=== PATIENT | female | born 1965 | race Caucasian/White ===

== ENCOUNTER → 2016-05-01 | Outpatient (CLI) | payer BC ==
--- NOTE | 2016-05-01 13:16 | MM ---
Reason for exam: clinical finding. Last mammogram was performed 4 years and 4 months ago. History: Retro-pectoral silicone gel implants in both breasts, 2011. Retro-pectoral saline implants in both breasts, 1997. Physical Findings: Nurse did not find any significant physical abnormalities on exam. MG Diag Mamm Implants WYATT w CAD Bilateral CC and MLO view(s) were taken. Prior study comparison: December 16, 2011, CAD bilateral diagnostic mammogram. October 15, 2009, bilateral diagnostic digital mammog. There are scattered fibroglandular densities. Finding: There are typically benign calcifications in both breasts. No significant changes in finding since December 16, 2011 and October 15, 2009. These results were verbally communicated with the patient and result sheet given to the patient on 05/01/16. ASSESSMENT: Benign, BI-RAD 2 RECOMMENDATION: Follow-up diagnostic mammogram of both breasts in 1 year.
== END | disposition home or self-care (01) ==
LOC: RADMAMWWP 12:13
PROVIDERS: ATTEND Internal Medicine
DX: N64.4 Mastodynia (principal); Z98.82 Breast implant status

== ENCOUNTER → 2016-10-12 | Outpatient (CLI) | payer BC ==
--- NOTE | 2016-10-12 17:58 | XR ---
EXAMINATION TYPE: XR foot limited RT DATE OF EXAM: 10/12/2016 CLINICAL HISTORY: Pain TECHNIQUE: 2 views. COMPARISON: None FINDINGS: I see no fracture nor dislocation. There is a small plantar calcaneal spur. There are no er osions. IMPRESSION: Calcaneal spurring. No evidence of inflammatory arthritis.
== END | disposition home or self-care (01) ==
LOC: RADXRMAIN 16:29
PROVIDERS: ATTEND Internal Medicine
DX: M77.31 Calcaneal spur, right foot (principal); M79.671 Pain in right foot

== ENCOUNTER 2018-07-06 19:18 | Emergency (ER) | payer BC ==
[2018-07-06] MEDS ORDERED: FLUTICASONE 50MCG/SPRAY NASAL 16GM EA NOSTRIL STA (20:07)
--- NOTE | 2018-07-06 20:24 | XR ---
EXAMINATION TYPE: XR chest 2V DATE OF EXAM: 07/06/2018 COMPARISON: NONE HISTORY: Cough and fever TECHNIQUE: Frontal and lateral views of the chest are obtained. FINDINGS: Heart and mediastinum are normal. Lungs are clear. Diaphragm is normal. Bony thorax is int act. IMPRESSION: Normal chest
--- NOTE | 2018-07-06 20:37 | ED ---
General Adult HPI - General Chief complaint: Upper Respiratory Infection Stated complaint: Flu Time Seen by Provider: 07/06/18 19:58 Source: patient, RN notes reviewed, old records reviewed Mode of arrival: ambulatory Limitations: no limitations - History of Present Illness Initial comments: 52-year-old female patient presents to ED approximately 2 weeks of nonproductive cough, otalgia, sore throat, sinus congestion. Patient reports that she has been evaluated by her primary care physician for this problem approximately 10 get days ago in which she was prescribed Tamiflu for possible influenza. Patient reports that she was not tested for influenza and did not have a chest x-ray. Patient denies any other complaints today. She does report that she had recent prolonged travel to [place] and [facility]. Systemic: Pt denies fatigue, myalgia, fever/chills, rash. Pt denies weakness, night sweats, weight loss. Neuro: Pt denies headache, visual disturbances, syncope or pre-syncope. HEENT: Pt denies ocular discharge or irritation, rhinorrhea, or notable lymphadenopathy. Cardiopulmonary: Pt denies chest pain, SOB, heart palpitations, dyspnea on exertion. Abdominal/GI: Pt denies abdominal pain, n/v/d. : Pt denies dysuria, burning w/ urination, frequency/urgency. Denies new onset urinary or bowel incontinence. MSK: Pt denies myalgia, loss of strength or function in extremities. Neuro: Pt denies new onset weakness, paresthesias. - Related Data Home Medications Medication Instructions Recorded Confirmed Ibuprofen [Motrin] 200 - 400 mg PO Q6HR PRN 03/23/16 04/14/16 Venlafaxine HCl [Effexor XR] 37.5 mg PO HS 03/23/16 04/14/16 Docusate [Colace] 100 mg PO DAILY PRN 04/14/16 04/14/16 HYDROcodone/APAP 10-325MG [[place] 0.5 tab PO HS PRN 04/14/16 04/14/16 10-325] Previous Rx's Medication Instructions Recorded Acetaminophen with Codeine 1 tab PO Q4H PRN #30 tab 04/14/16 [Tylenol w/codeine #3] Ciprofloxacin HCl [Cipro] 500 mg PO Q12HR #20 tablet 04/14/16 Dicyclomine [Bentyl] 10 mg PO TID #30 capsule 04/14/16 Naproxen [Naprosyn] 500 mg PO Q12HR #30 tab 04/14/16 Ondansetron Odt [Zofran Odt] 4 mg PO Q8HR PRN #30 tab 04/14/16 metroNIDAZOLE [Flagyl] 500 mg PO Q8HR #30 tab 04/14/16 Oxymetazoline 0.05% Nasl [place] 2 spray EA NOSTRIL BID 3 Days #1 07/06/18 [Afrin 0.05% Nasal [place]] bottle Allergies Allergy/AdvReac Type Severity Reaction Status Date / Time No Known Allergies Allergy Verified 04/14/16 14:57 Review of Systems ROS Statement: Those systems with pertinent positive or pertinent negative responses have been documented in the HPI. ROS Other: All systems not noted in ROS Statement are negative. Past Medical History Additional Past Medical History / Comment(s): IBS-constipation,hx polyps,PM>1yr History of Any Multi-Drug Resistant Organisms: None Reported Additional Past Surgical History / Comment(s): Breast implants,tummy tuck Past Anesthesia/Blood Transfusion Reactions: Motion Sickness Past Psychological History: No Psychological Hx Reported, Depression Smoking Status: Never smoker Past Alcohol Use History: Occasional Past Drug Use History: None Reported - Past Family History Mother Family Medical History: Diabetes Mellitus Father History Unknown: Yes Son(s) Additional Family Medical History / Comment(s): Marfan's Syndrome Brother(s) Family Medical History: Cancer Additional Family Medical History / Comment(s): Leukemia General Exam - General Exam Comments Initial Comments: Constitutional: NAD, AOX3, Pt has pleasant affect. HEENT: NC/AT, trachea midline, neck supple, no lymphadenopathy. Posterior pharynx non erythematous, without exudates. External ears appear normal, without discharge. TM pale coffey bilaterally. Mucous membranes moist. Eyes PERRLA, EOM intact. There is no scleral icterus. No pallor noted. Cardiopulmonary: RRR, no murmurs, rubs or gallops, no JVD noted. Lungs CTAB in anterior and posterior lopez. No peripheral edema. Abdominal exam: Abdomen soft and non-distended. Abdomen non-tender to palpation in all 4 quadrants. Bowel sounds active in LLQ. No hepatosplenomegaly. No ecchymosis Neuro: CN II-XII grossly intact. No nuchal rigidity. MSK: No posterior calf tenderness bilaterally, homans sign negative bilaterally. Posterior tibialis and radial pulse +2 bilaterally. Sensation intact in upper and lower extremities. Full active ROM in upper and lower extremities, 5/5 stregnth. Limitations: no limitations Course Vital Signs 07/06/18 07/06/18 07/06/18 19:51 20:16 22:44 Temperature 99.2 F 98.4 F Pulse Rate 74 88 Respiratory 18 20 18 Rate Blood Pressure 133/69 139/87 O2 Sat by Pulse 99 99 Oximetry Medical Decision Making - Medical Decision Making 52-year-old female patient presents to ED approximately 2 weeks of nonproductive cough, otalgia, sore throat, sinus congestion. Patient reports that she has been evaluated by her primary care physician for this problem approximately 10 get days ago in which she was prescribed Tamiflu for possible influenza. Patient reports that she was not tested for influenza and did not have a chest x-ray. Patient denies any other complaints today. She does report that she had recent prolonged travel to [place] and back. Vital signs stable, afebrile. Physical exam did not display acute pathology. O2 investigations revealed nonparous of CBC, CMP, negative d-dimer, negative influenza. Chest did not display acute process. Patient likely has viral syndrome. Patient prescribed Afrin, Flonase. Patient to follow up with primary care provider tomorrow for further evaluation. Patient's to return to ER if condition worsens in anyway. Case discussed with Dr. Howard. - Lab Data Result diagrams: 07/06/18 21:05 07/06/18 21:05 Lab Results 07/06/18 07/06/18 07/06/18 Range/Units 20:10 21:05 21:05 WBC 4.3 (3.8-10.6) k/uL RBC 4.14 (3.80-5.40) m/uL Hgb 12.9 (11.4-16.0) gm/dL Hct 39.2 (34.0-46.0) % MCV 94.6 (80.0-100.0) fL MCH 31.1 (25.0-35.0) pg MCHC 32.9 (31.0-37.0) g/dL RDW 12.8 (11.5-15.5) % Plt Count 267 (150-450) k/uL Neutrophils % 57 % Lymphocytes % 33 % Monocytes % 5 % Eosinophils % 3 % Basophils % 1 % Neutrophils # 2.5 (1.3-7.7) k/uL Lymphocytes # 1.4 (1.0-4.8) k/uL Monocytes # 0.2 (0-1.0) k/uL Eosinophils # 0.1 (0-0.7) k/uL Basophils # 0.0 (0-0.2) k/uL D-Dimer (<0.60) mg/L FEU Sodium 136 L (137-145) mmol/L Potassium 4.4 (3.5-5.1) mmol/L Chloride 104 (98-107) mmol/L Carbon Dioxide 23 (22-30) mmol/L Anion Gap 9 mmol/L BUN 9 (7-17) mg/dL Creatinine 0.53 (0.52-1.04) mg/dL Est GFR (CKD-EPI)AfAm >90 (>60 ml/min/1.73 sqM) Est GFR (CKD-EPI)NonAf >90 (>60 ml/min/1.73 sqM) Glucose 77 (74-99) mg/dL Calcium 9.4 (8.4-10.2) mg/dL Total Bilirubin 0.4 (0.2-1.3) mg/dL AST 29 (14-36) U/L ALT 35 (9-52) U/L Alkaline Phosphatase 96 (38-126) U/L Total Protein 6.9 (6.3-8.2) g/dL Albumin 4.2 (3.5-5.0) g/dL Influenza Type A RNA Not Detected (Not Detectd) Influenza Type B (PCR) Not Detected (Not Detectd) 07/06/18 Range/Units 21:05 WBC (3.8-10.6) k/uL RBC (3.80-5.40) m/uL Hgb (11.4-16.0) gm/dL Hct (34.0-46.0) % MCV (80.0-100.0) fL MCH (25.0-35.0) pg MCHC (31.0-37.0) g/dL RDW (11.5-15.5) % Plt Count (150-450) k/uL Neutrophils % % Lymphocytes % % Monocytes % % Eosinophils % % Basophils % % Neutrophils # (1.3-7.7) k/uL Lymphocytes # (1.0-4.8) k/uL Monocytes # (0-1.0) k/uL Eosinophils # (0-0.7) k/uL Basophils # (0-0.2) k/uL D-Dimer <0.17 (<0.60) mg/L FEU Sodium (137-145) mmol/L Potassium (3.5-5.1) mmol/L Chloride (98-107) mmol/L Carbon Dioxide (22-30) mmol/L Anion Gap mmol/L BUN (7-17) mg/dL Creatinine (0.52-1.04) mg/dL Est GFR (CKD-EPI)AfAm (>60 ml/min/1.73 sqM) Est GFR (CKD-EPI)NonAf (>60 ml/min/1.73 sqM) Glucose (74-99) mg/dL Calcium (8.4-10.2) mg/dL Total Bilirubin (0.2-1.3) mg/dL AST (14-36) U/L ALT (9-52) U/L Alkaline Phosphatase (38-126) U/L Total Protein (6.3-8.2) g/dL Albumin (3.5-5.0) g/dL Influenza Type A RNA (Not Detectd) Influenza Type B (PCR) (Not Detectd) Disposition Clinical Impression: Viral syndrome Disposition: HOME SELF-CARE Condition: Stable Instructions (If sedation given, give patient instructions): Upper Respiratory Infection (ED), Viral Syndrome (ED) Additional Instructions: Patient to adhere to previously discussed treatment plan and will take medication(s) as directed. Patient to follow up with PCP in 1-2 days. Patient to return to ED if symptoms do not improve. Please follow-up with primary care granddaughter 2 days. Please return to ER if condition worsens in any way. Prescriptions: Oxymetazoline 0.05% Nasl [place] [Afrin 0.05% Nasal [place]] 2 spray EA NOSTRIL BID 3 Days #1 bottle Is patient prescribed a controlled substance at d/c from ED?: No Referrals: Juan Santos MD [Primary Care Provider] - 1-2 days
[2018-07-06] MEDS ORDERED: SODIUM CHLORIDE 0.9% 1,000 ML IV STA (20:57)
[2018-07-06 21:49] LABS: Basophils % (A) 1 %; Eosinophils # (A) 0.1 k/uL (0-0.7); Eosinophils % (A) 3 %; HCT 39.2 % (34.0-46.0); HGB 12.9 gm/dL (11.4-16.0); Lymphocytes # (A) 1.4 k/uL (1.0-4.8); Lymphocytes % (A) 33 %; MCH 31.1 pg (25.0-35.0); MCHC 32.9 g/dL (31.0-37.0); MCV 94.6 fL (80.0-100.0); Mean Platelet Volume 6.1; Monocytes # (A) 0.2 k/uL (0-1.0); Monocytes % (A) 5 %; Neutrophils # (A) 2.5 k/uL (1.3-7.7); Neutrophils % (A) 57 %; Platelet Count 267 k/uL (150-450); RBC 4.14 m/uL (3.80-5.40); RDW 12.8 % (11.5-15.5); WBC 4.3 k/uL (3.8-10.6)
[2018-07-06 21:58] LABS: ALT 35 U/L (9-52); AST 29 U/L (14-36); Albumin 4.2 g/dL (3.5-5.0); Alkaline Phosphatase 96 U/L (38-126); Anion Gap 9 mmol/L; Blood Urea Nitrogen 9 mg/dL (7-17); Calcium 9.4 mg/dL (8.4-10.2); Carbon Dioxide 23 mmol/L (22-30); Chloride 104 mmol/L (98-107); Glucose 77 mg/dL (74-99); Potassium 4.4 mmol/L (3.5-5.1); Sodium 136 mmol/L (137-145); Total Bilirubin 0.4 mg/dL (0.2-1.3); Total Protein 6.9 g/dL (6.3-8.2)
[2018-07-06 22:45] VITALS: BP 139/87; PULSE 88; RESP 18; TEMP 98.4
== END 2018-07-06 22:45 | disposition home or self-care (01) ==
LOC: EC 19:18
DX: B34.9 Viral infection, unspecified (principal); F32.9 Major depressive disorder, single episode, unspecified; Z79.899 Other long term (current) drug therapy
CPT/HCPCS: 36415; 71046; 80053; 85025; 85379; 87502; 96360; 99284

== ENCOUNTER → 2019-05-23 | Outpatient (CLI) | payer BC ==
--- NOTE | 2019-05-23 22:13 | CONS ---
CONSULTATION REASON FOR CONSULTATION: Hypersomnia. This is a 53-year-old female patient coming in for excessive hypersomnia that she has been suffering for the past 7 years. She has been diagnosed having depression and she is taking a combination of Wellbutrin and Effexor through her primary care physicians. In addition to her excessive hypersomnia and sleepiness, the patient has been having loud snoring, and this has been noted by herself and by her . Her sleep is fragmented and she wakes up a few times in the middle of the night. She is averaging around 8 to 10 hours of sleep. She goes to bed around 10:00 and she gets up sometime in the morning between 7 and 8 a.m. She is very somnolent and sleepy. 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 It takes her at least an hour or so to get adjusted during the day and she drinks caffeinated beverages in the form of tea and coffee to get herself stimulated. She is a nonsmoker. No history of substance abuse. No history of head trauma. No history of CVA. No history of any underlying neurologic disease. The patient has been denying any form of restlessness in the lower extremities. No sleep paralysis. No hallucinations. No cataplexy. Her son has Marfan's syndrome and has aortic valve disease and he has been diagnosed also having narcolepsy without cataplexy through our sleep center. He is being treated with stimulants for now. She has gained about 15 to 20 pounds over the past 5 years. She does have a slight overbite. She grinds her teeth and she has a Mallampati class IV. PAST MEDICAL HISTORY: Depression and irritable bowel disease. PAST SURGICAL HISTORY: Past surgical history includes bilateral breast implants. DRUG ALLERGIES: NOT KNOWN. OUTPATIENT MEDICATION LIST: Outpatient medication list includes Effexor and Wellbutrin. SOCIAL HISTORY: Nonsmoker. No history of alcoholism. No history of IV drugs. 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 FAMILY HISTORY: Positive for narcolepsy in her son, who has also Marfan's syndrome. REVIEW OF SYSTEMS: Fourteen-point review of systems was done. Positive findings were all mentioned above in the history of present illness. Note that there is no reported history of insomnia. No choking or gasping sensation in the middle of the night. No restlessness in the lower extremities. No palpitations. No heartburn. No chest pain or shortness of breath. She has a component of depression. PHYSICAL EXAMINATION: BP is 129/88, pulse 80, respirations 16, temperature 97.8. Height is 5 feet 3 inches, weight 139. Neck size is 13-1/2 inches. Saturation 99% on room air. BMI is 24.6. GENERAL APPEARANCE: Calm, comfortable. HEAD: Atraumatic, normocephalic. There is evidence of grinding of the teeth. The posterior oropharynx cannot be accurately visualized. NECK: Supple. No JVD. No goiter or neck masses. Mallampati class IV. LUNGS: Clear to auscultation. HEART: Heart sounds are regular rate and rhythm. Normal S1, S2. No S3, S4. No murmurs. ABDOMEN: Soft, nontender. No organomegaly. EXTREMITIES: No edema. No cyanosis or clubbing. IMPRESSION: 1. Chronic hypersomnia, excessive, with an Houston score of 21. Rule out obstructive sleep apnea. Narcolepsy is felt to be less likely. 2. Grinding of the teeth. 3. Loud snoring. 4. History of depression. PLAN: 1. Set up this patient for a PSG and next day MSLT. 2. The patient needs to stop her Effexor and Wellbutrin 14 days prior to the procedures. 3. Implement good sleep hygiene measures. 4. The patient denies falling asleep while driving. She has never been involved in a motor vehicle accident. I asked her to continue stimulating herself with caffeinated beverages, implement good sleep hygiene measures, weight loss, and I will see her back after the PSG/MSLT testing. MMODL / IJN: [id number] /
== END ==
LOC: SLEEP 15:42
PROVIDERS: ATTEND Internal Medicine Critical Care Medicine
DX: G47.10 Hypersomnia, unspecified (principal); G47.63 Sleep related bruxism; F32.9 Major depressive disorder, single episode, unspecified; R06.83 Snoring; Z79.899 Other long term (current) drug therapy
CPT/HCPCS: 99211

== ENCOUNTER → 2019-10-09 | Outpatient (CLI) | payer BC ==
[2019-10-09 14:05] LABS: HCT 42.4 % (34.0-46.0); HGB 13.7 gm/dL (11.4-16.0); MCH 31.6 pg (25.0-35.0); MCHC 32.3 g/dL (31.0-37.0); MCV 97.8 fL (80.0-100.0); Platelet Count 237 k/uL (150-450); RBC 4.34 m/uL (3.80-5.40); WBC 4.1 k/uL (3.8-10.6)
[2019-10-09 17:24] LABS: Erythrocyte Sedimentation Rate 6 mm/hr (0-20)
[2019-10-09 20:20] LABS: African American GFR (CKD) 119.8 (60.0-200.0); Albumin 4.4 g/dL (3.80-4.90); Albumin/Globulin Ratio 1.91 (1.60-3.17); Anion Gap 7.5 mmol/L (4.00-12.00); BUN/Creat Ratio 21.67 Ratio (12.00-20.00); Calcium 9.1 mg/dL (8.7-10.3); Carbon Dioxide 25.5 mmol/L (21.6-31.8); Chol/HDL Ratio 3.05; Globulin 2.3 g/dL (1.6-3.3); LDL Cholesterol,Calculated 147.4 mg/dL (0.0-131.0); Non-African American GFR(CKD) 103.3 (60.0-200.0); Potassium 4.3 mmol/L (3.5-5.5); Total Bilirubin 0.5 mg/dL (0.3-1.2); Total Protein 6.7 g/dL (6.2-8.2); VLDL Calculation 14.6 mg/dL (5.00-40.00)
[2019-10-09 21:10] LABS: Cyclic Citrullinated Pep IgG NEGATIVE (NEGATIVE)
[2019-10-11 15:43] LABS: Hepatitis A Antibody IgM Non-Reactive (Non-Reactive); Hepatitis B Core IgM Non-Reactive (Non-Reactive); Hepatitis B Surface Antigen Non-Reactive (Non-Reactive); Hepatitis C IgG Antibody Non-Reactive (Non-Reactive)
== END | disposition home or self-care (01) ==
LOC: LABWHC1 12:30
PROVIDERS: ATTEND Internal Medicine
DX: M79.641 Pain in right hand (principal); R53.83 Other fatigue; R94.5 Abnormal results of liver function studies
CPT/HCPCS: 36415; 80053; 80061; 80074; 82306; 82607; 84439; 84443; 85027; 85652; 86038; 86200; 86431

== ENCOUNTER → 2019-11-14 | Outpatient (CLI) | payer BC ==
--- NOTE | 2019-11-14 21:10 | MR ---
EXAMINATION TYPE: MR cspine/lspine wo con DATE OF EXAM: 11/14/2019 COMPARISON: MRI lumbar spine December 08, 2011. MRI cervical spine May 27, 2015. HISTORY: Neck and low back pain per order. Low back pain for 8 to 10 years into bilateral thighs per patient. TECHNIQUE: Multiplanar, multisequence imaging of the cervical and lumbar spine are performed without IV contrast. FINDINGS: C-SPINE: Sagittal images of the cervical spine show the craniocervical junction to remain within normal limits . The cervical and upper thoracic spinal cord remains normal in course, caliber, and signal. Some l oss of normal cervical curvature redemonstrated. Persistent slight grade 1 retrolisthesis C6 on C7. T here is mild disc space narrowing C5-C6 level with mild spurring redemonstrated. Otherwise the vert ebral body and intravertebral disk heights remain normal. There is additional mild anterior spurring C6-C7 level redemonstrated. The bone marrow signal intensity is within normal limits. Axial images show the C2-C3 level to remain within normal limits. Axial images at C3-C4 level redemonstrates small right paracentral disc protrusion mildly effacing an terolateral thecal sac, bilateral neural foramina remain patent. No significant change from prior. Axial images at C4-C5 level redemonstrate small broad-based central disc protrusion mildly effacing a nterior thecal sac fairly stable, and mild uncovertebral facet degenerative changes cause new mild ri ght-sided neural foraminal narrowing. Axial images at C5-C6 level redemonstrate broad-based posterior spur disc complex mildly effacing ant erior thecal sac, there is moderate right and mild left-sided neural foraminal narrowing at this leve l redemonstrated. No significant change from prior. Axial images at C6-C7 level show more artifact degradation on current study with persistent small lef t paracentral disc protrusion minimally effacing anterolateral thecal sac, bilateral neural foramina are felt to remain patent. Axial images at C7-T1 level are felt to remain within normal limits. Impression: Persistent stable loss of normal cervical curvature with multilevel degenerative changes greatest at C5-C6 level. Some interval progression in degenerative change at C4-C5 level noted otherw ise no significant change from prior MRI. L-SPINE: Sagittal images of the lumbar spine show vertebral body heights to remain satisfactory. Alignment is stable and straightened. Multilevel diffuse disc desiccation identified with progression from prior M RI. There is moderate to severe disc space narrowing at L4-L5 level identified with progression from prior MRI. There is mild disc space narrowing with increased signal posteriorly consistent with annul ar tear at the L5-S1 level redemonstrated. The conus remains normal in position and signal ending at superior L1 level. Persistent round area of low T1 and T2 signal occupying L3 vertebra sagittal image 9 favoring a benign etiology given interval stability. Heterogeneous Modic type I endplate changes a nteriorly L4-L5 level are now present with mild anterior spurring. Probable stable small Tarlov cyst near superior S2 level sagittal image 6 for reference. Axial images show the T12-L1 and L1-L2 levels to remain within normal limits. Axial images at the L2-L3 level show new mild broad disc bulge mildly effacing the anterior thecal sa c, bilateral neural foramina are patent. Axial images at the L3-L4 level show slightly more prominent mild to moderate broad disc bulge that e ffaces the anterior thecal sac, the neural foramen remain patent bilaterally at this level. Axial images at the L4-L5 level show moderate broad disc bulge that mildly effaces anterior thecal sa c more prominent from prior MRI, with new [id number] facet degenerative changes bilaterally in new mild bilateral anterior inferior neural foraminal narrowing. Axial images at the L5-S1 level show persistent broad-based central disc protrusion with right sided annular tear redemonstrated. [id number] facet degenerative changes bilaterally new from prior. Spinal canal remains preserved and bilateral neural foraminal are patent . Incidental note is probable persistent small superior uterine fundal fibroid on sagittal image 1 on c urrent study. Additional smaller fibroids likely present. IMPRESSION- There is multilevel degenerative change in the lumbar spine with several levels of anteri or spinal canal effacement with further details as noted in body of report. Interval progression from 2012 MRI noted as detailed above.
== END ==
LOC: RADMRIMAIN 17:53
PROVIDERS: ATTEND Internal Medicine
DX: M48.061 Spinal stenosis, lumbar region without neurogenic claudication (principal); M51.27 Other intervertebral disc displacement, lumbosacral region; M51.26 Other intervertebral disc displacement, lumbar region; M47.816 Spondylosis without myelopathy or radiculopathy, lumbar region
CPT/HCPCS: 72141; 72148

== ENCOUNTER → 2019-11-29 | Outpatient (CLI) | payer BC ==
--- NOTE | 2019-11-29 15:37 | US ---
EXAMINATION TYPE: US liver DATE OF EXAM: 11/29/2019 COMPARISON: NONE CLINICAL HISTORY: R94.5 Abnormal liver function test. EXAM MEASUREMENTS: Liver Length: 12.2 cm Gallbladder Wall: 0.2 cm CBD: 0.1 cm Right Kidney: 9.1 x 3.4 x 4.5 cm Pancreas: Small echogenic area within the uncinate process posterior to the vascular structure. ?miguel angel cification in uncinate process Liver: wnl Gallbladder: probable polyp measuring 3mm Evidence for sonographic Sr's sign: no CBD: wnl Right Kidney: No hydronephrosis or masses seen IMPRESSION: 1. Small gallbladder polyp 2. Punctate echogenic area within the head of the pancreas. Consider additional workup with contrast CT abdomen
== END | disposition home or self-care (01) ==
LOC: RADUSWWP 10:29
PROVIDERS: ATTEND Internal Medicine
DX: K82.4 Cholesterolosis of gallbladder (principal); K86.89 Other specified diseases of pancreas
CPT/HCPCS: 76705

== ENCOUNTER → 2019-12-04 | Outpatient (CLI) | payer BC ==
--- NOTE | 2019-12-05 14:22 | EST ---
EXERCISE STRESS AGE: 53 SEX: F HT: 63" WT: 140 lbs. PROTOCOL: ETT STAGE: 4 DURATION OF EXERCISE: 9:30 HEART RATE REST: 83 BLOOD PRESSURE REST: 142/77 MAXIMUM HEART RATE ACHIEVED: 155 MAXIMUM BLOOD PRESSURE: 159/90 85% MPHR: 141 100% MPHR: 166 METS: 10.9 INDICATIONS: Abnormal EKG. CLINICAL INFORMATION: Baseline EKG shows sinus rhythm, normal axis, normal intervals. Patient exercised on Adithya protocol for a total of 9.5 minutes achieving 11 METS, 93% of predicted maximal heart rate without chest pain or diagnostic ST-segment depression. CONCLUSION: 1. Good exercise tolerance. 2. Negative stress test by EKG criteria. MMODL / IJN: [id number] /
== END | disposition home or self-care (01) ==
LOC: RADNMMAIN 10:47
PROVIDERS: ATTEND Internal Medicine
DX: R94.31 Abnormal electrocardiogram [ECG] [EKG] (principal)
CPT/HCPCS: 93017

== ENCOUNTER → 2019-12-08 | Outpatient (CLI) | payer BC ==
--- NOTE | 2019-12-08 17:35 | ECHOF ---
Referral Reason:R94.31 MEASUREMENTS -------- HEIGHT: 160.0 cm WEIGHT: 63.5 kg BP: RVIDd: 2.3 cm (< 3.3) IVSd: 0.8 cm (0.6 - 1.1) LVIDd: 3.3 cm (3.9 - 5.3) LVPWd: 1.0 cm (0.6 - 1.1) IVSs: 1.2 cm LVIDs: 2.1 cm LVPWs: 1.3 cm Ao Diam: 1.9 cm (2.0 - 3.7) AV Cusp: 1.7 cm (1.5 - 2.6) LA Diam: 2.2 cm (2.7 - 3.8) MV EXCURSION: 11.236 mm (> 18.000) MV EF SLOPE: 47 mm/s (70 - 150) EPSS: 0.2 cm MV E Marquez: 0.51 m/s MV DecT: 210 ms MV A Marquez: 0.77 m/s MV E/A Ratio: 0.66 RAP: 5.00 mmHg RVSP: 19.09 mmHg FINDINGS -------- Sinus rhythm. This was a technically adequate study. LV size, wall thickness and systolic function are normal, with an EF greater than 55%. The left mary tricular size is normal. The right ventricle is normal in size. The left atrial size is normal. The right atrial size is normal. The aortic valve is trileaflet, and appears structurally normal. No aortic stenosis or regurgitation. The mitral valve is normal. Mild mitral regurgitation is present. The tricuspid valve appears structurally normal. Mild tricuspid regurgitation present. Right vent ricular systolic pressure is normal at < 35 mmHg. There is no pulmonic regurgitation present. The aortic root size is normal. Normal inferior vena cava with normal inspiratory collapse consistent with estimated right atrial pre ssure of 5 mmHg. There is no pericardial effusion. CONCLUSIONS -------- 1. LV size, wall thickness and systolic function are normal, with an EF greater than 55%. 2. The left atrial size is normal. 3. The aortic valve is trileaflet, and appears structurally normal. No aortic stenosis or regurgitati on. 4. Mild mitral regurgitation is present. 5. Mild tricuspid regurgitation present. 6. There is no pericardial effusion. LEARNING SUPPORT ASSISTANT: Lori Peter RDCS
== END | disposition home or self-care (01) ==
LOC: RADECHMAIN 12:33
PROVIDERS: ATTEND Internal Medicine
DX: I08.1 Rheumatic disorders of both mitral and tricuspid valves (principal)
CPT/HCPCS: 93306

== ENCOUNTER → 2020-12-06 | Outpatient (CLI) | payer BC ==
[2020-12-06 19:17] LABS: Basophils # (A) 0.04 X 10*3/uL (0.00-0.10); Basophils % (A) 0.5 %; Eosinophils # (A) 0.01 X 10*3/uL (0.04-0.35); Eosinophils % (A) 0.1 %; HCT 42.3 % (37.2-46.3); HGB 13.8 g/dL (12.0-15.0); Lymphocytes # (A) 0.85 X 10*3/uL (0.90-5.00); Lymphocytes % (A) 11.3 %; MCH 32.3 pg (27.0-32.0); MCHC 32.6 g/dL (32.0-37.0); MCV 99.1 fL (80.0-97.0); Mean Platelet Volume 10.1 fL (9.5-12.2); Monocytes % (A) 5.3 %; Neutrophils # (A) 6.19 X 10*3/uL (1.80-7.70); Neutrophils % (A) 82.5 %; Platelet Count 305 X 10*3/uL (140-440); RBC 4.27 X 10*6/uL (4.10-5.20); RDW 12.5 % (11.5-14.5); WBC 7.51 X 10*3/uL (4.50-10.00)
[2020-12-06 20:16] LABS: Erythrocyte Sedimentation Rate 7 mm/Hr (0-30)
[2020-12-07 04:44] LABS: Chol/HDL Ratio 3.19
[2020-12-07 10:49] LABS: HLA B27 NEGATIVE
== END | disposition home or self-care (01) ==
LOC: LABWHC1 13:49
PROVIDERS: ATTEND Internal Medicine
DX: M54.5 Low back pain (principal); E78.5 Hyperlipidemia, unspecified; G89.4 Chronic pain syndrome; R53.82 Chronic fatigue, unspecified
CPT/HCPCS: 36415; 80061; 85025; 85652; 86038; 86431; 86812

== ENCOUNTER → 2020-12-09 | Outpatient (CLI) | payer BC ==
[2020-12-09 14:51] LABS: Chol/HDL Ratio 3.05
== END | disposition home or self-care (01) ==
LOC: LABWHC1 09:01
PROVIDERS: ATTEND Internal Medicine
DX: G89.4 Chronic pain syndrome (principal); E78.9 Disorder of lipoprotein metabolism, unspecified; M54.5 Low back pain; R53.82 Chronic fatigue, unspecified
CPT/HCPCS: 36415; 80061

== ENCOUNTER → 2021-02-25 | Outpatient (CLI) | payer BC ==
[2021-02-25 15:41] LABS: Basophils # (A) 0.1 k/uL (0-0.2); Basophils % (A) 1 %; Eosinophils % (A) 1 %; HGB 14.2 gm/dL (11.4-16.0); Lymphocytes # (A) 1.3 k/uL (1.0-4.8); Lymphocytes % (A) 27 %; MCH 32.6 pg (25.0-35.0); MCHC 33.1 g/dL (31.0-37.0); MCV 98.6 fL (80.0-100.0); Mean Platelet Volume 6.7; Monocytes # (A) 0.2 k/uL (0-1.0); Monocytes % (A) 5 %; Neutrophils % (A) 63 %; Platelet Count 285 k/uL (150-450); RBC 4.36 m/uL (3.80-5.40); WBC 4.7 k/uL (3.8-10.6)
[2021-02-25 15:49] LABS: Potassium 4.2 mmol/L (3.5-5.1)
== END | disposition home or self-care (01) ==
LOC: LABPAT 14:52
PROVIDERS: ATTEND Orthopaedic Surgery Hand Surgery
DX: Z01.812 Encounter for preprocedural laboratory examination (principal); M65.331 Trigger finger, right middle finger
CPT/HCPCS: 36415; 80051; 85025; 93005

== ENCOUNTER 2021-03-12 10:39 | Day surgery (SDC) | payer BC ==
--- NOTE | 2021-03-11 13:11 | P.HPOR ---
History of Present Illness H&P Date: 03/11/21 Chief Complaint: RMF Trigger finger Subjective: This is a 55 year old female that presents today for initial evaluation regarding right middle finger pain, swelling, stiffness for the last several months. She denies any specific injury to the hand but does have a history of a right carpal tunnel release performed 2 years prior by another orthopedic surgery. She currently denies any paresthesias. She also had occasional stiffness and pain in the distal portions of her digits in both hands but states the middle finger his her main concern and she has had significant limitations in regards to movement due to pain and swelling. She has tried over the counter anti-inflammatories with little relief. Physical Examination: RUE: AIN/PIN/Radial/Ulnar/Median motor intact. Radial/Ulnar/Median SILT. 2+/4 Radial/Ulnar pulses palpated. TTP over A1 arthur of right middle finger with palpable nodule at A1 arthur with catching and clicking. MF PIP ROM 5-50 limited due to pain. No erythema or fusiform swelling. Patient unable to make a full fist due to pain and stiffness in right middle finger. Imaging: X-Rays of the Right hand demonstrate no acute fracture. Degenerative changes noted at DIP joint of right small finger. Impression: 1.) RMF incarcerated trigger finger 2.) RSF DIP joint arthritis Plan: Diagnosis and treatment options were discussed with the patient. She appears to have an inflamed and incarcerated right middle finger trigger finger on todays exam. We discussed the possibility of a steroid injection but due to the severity of her pain and limited range of motion and incarcerated nature of her trigger finger she would like to proceed with A1 arthur release of the right middle finger. Risks and benefits of surgery were discussed including bleeding, infection, recurrence, damage to surrounding tissue, need for further surgery were discussed and she wished to proceed. The patient was agreeable with this plan of action and will tentatively be boarded for RMF A1 Arthur release in the near future. Past Medical History Additional Past Medical History / Comment(s): IBS-constipation,hx polyps,PM>1yr History of Any Multi-Drug Resistant Organisms: None Reported Additional Past Surgical History / Comment(s): Breast implants,tummy tuck Past Anesthesia/Blood Transfusion Reactions: Motion Sickness Past Psychological History: No Psychological Hx Reported, Depression Past Alcohol Use History: Occasional Past Drug Use History: None Reported - Past Family History Mother Family Medical History: Diabetes Mellitus Father History Unknown: Yes Son(s) Additional Family Medical History / Comment(s): Marfan's Syndrome Brother(s) Family Medical History: Cancer Additional Family Medical History / Comment(s): Leukemia Medications and Allergies Home Medications Medication Instructions Recorded Confirmed Type Ibuprofen [Motrin] 200 - 400 mg PO Q6HR PRN 03/23/16 04/14/16 History Venlafaxine HCl [Effexor XR] 37.5 mg PO HS 03/23/16 04/14/16 History Acetaminophen with Codeine 1 tab PO Q4H PRN #30 tab 04/14/16 Rx [Tylenol w/codeine #3] Ciprofloxacin HCl [Cipro] 500 mg PO Q12HR #20 tablet 04/14/16 Rx Dicyclomine [Bentyl] 10 mg PO TID #30 capsule 04/14/16 Rx Docusate [Colace] 100 mg PO DAILY PRN 04/14/16 04/14/16 History HYDROcodone/APAP 10-325MG [Manning 0.5 tab PO HS PRN 04/14/16 04/14/16 History 10-325] Naproxen [Naprosyn] 500 mg PO Q12HR #30 tab 04/14/16 Rx Ondansetron Odt [Zofran Odt] 4 mg PO Q8HR PRN #30 tab 04/14/16 Rx metroNIDAZOLE [Flagyl] 500 mg PO Q8HR #30 tab 04/14/16 Rx Oxymetazoline 0.05% Nasl [place] 2 spray EA NOSTRIL BID 3 Days #1 07/06/18 Rx [Afrin 0.05% Nasal [place]] bottle Allergies Allergy/AdvReac Type Severity Reaction Status Date / Time No Known Allergies Allergy Verified 04/14/16 14:57 Physical Examination Osteopathic Statement: *. No significant issues noted on an osteopathic structural exam other than those noted in the History and Physical/Consult.
[~2021-03-12 10:39] MED LIST: HYDROmorphone 0.5 MG/0.5 ML SYRINGE IVP PRN; LACTATED RINGERS 1,000 ML IV SCH; LIDOCAINE 1% (10MG/ML) FOR IV START INTRADERMA PRN; ONDANSETRON 4 MG/2 ML VIAL IVP ONE; Pre Op ABX Message 1 EACH MISC MISCELLANE ONE
[2021-03-12 11:20] VITALS: TEMP 97.4
[2021-03-12] MEDS ORDERED: SCOPOLAMINE 1.5MG/72HR PATCH TRANSDERM ONE (11:20)
[2021-03-12] MEDS ORDERED: MIDAZOLAM 2 MG/2 ML VIAL ONE (13:52)
[2021-03-12] MEDS ORDERED: PROPOFOL 10 MG/ML 20 ML VIAL IV ONE (13:52)
[2021-03-12] MEDS ORDERED: KETAMINE 10 MG/ML 20 ML VIAL ONE (13:52)
[2021-03-12] MEDS ORDERED: fentaNYL (PF) 50 MCG/ML 2 ML AMP ONE (13:52)
[2021-03-12] MEDS ORDERED: LIDOCAINE 1% INJ 10MG/ML (20 ML MDV) ONE (13:52)
[2021-03-12] MEDS ORDERED: BUPIVACAINE (PF) 0.5% 30 ML VIAL SQ ONE (14:02)
[2021-03-12] MEDS ORDERED: LIDOCAINE 1% INJ 10MG/ML (20 ML MDV) SQ ONE (14:02)
[2021-03-12] MEDS ORDERED: BACITRACIN ZINC 500 UNIT/GM OINT 28.4 GM TUBE TOPICAL ONE (14:17)
[2021-03-12 15:25] VITALS: BP 127/68; PULSE 79; RESP 16
--- NOTE | 2021-03-12 19:01 | P.OP ---
Date of Procedure: 03/12/21 Preoperative Diagnosis: Right middle finger trigger finger Postoperative Diagnosis: Right middle finger trigger finger Procedure(s) Performed: Right middle finger A1 Arthur release Anesthesia: MAC Surgeon: Arias Montero Estimated Blood Loss (ml): 0 Pathology: none sent Condition: stable Disposition: PACU Description of Procedure: This is a 55 year old female who presents today for a right middle finger trigger finger A1 arthur release after having failed conservative treatment. Risks and benefits of surgery were discussed with the patient including bleeding, damage to surrounding tissue, infection, need for further surgery as well as risks of anesthesia including pulmonary embolism and even and the patient wished to proceed with surgical intervention. The patient was seen in the pre-operative area by myself. Consent and H&P were completed and updated. The correct extremity was marked in the pre-operative area by myself and all other questions were answered. Operative Narrative: The patient was brought to the operating room by the department of anesthesia. They remained on the portable stretcher and a rolling hand table was brought to the side of the operative extremity. Pre-operative time out was performed indicating the correct patient, procedure and laterality. All in the room agreed. Pre-operative antibiotics were given prior to skin incision. The patient was then drifted off to sleep by the department of anesthesia. A n onsterile tourniquet was then applied to the operative extremity and the right upper extremity was then prepped and draped in normal sterile fashion. The operative extremity was the exsanguinated with an esmarch bandage and the tourniquet was inflated to 250mmHg. Oblique incision was made at the base of the right middle finger. Blunt dissection was taken down to the level of the A1 arthur. Ragnell retractors were placed both radially and ulnarly to protect neurovascular bundles. Littler tenotomy scissors were then used to release the A1 arthur from proximal to distal under direct visualization. Proximal fascial attachments were released. The tendon was then taken through range of motion and no locking or catching was appreciated. The wound was then closed with interrupted 4-0 nylon sutures in a horizontal mattress fashion. Sterile dressing consisting of adaptic, 4x4s, webril, and an frank wrap was applied. Tourniquet was let down and the hand was immediately well perfused. The patient was then woken by the department of anesthesia and transferred to PACU in stable condition. Arias Montero D.O. Orthopedic Hand/Upper Extremity Surgeon
== END 2021-03-12 15:26 | disposition home or self-care (01) ==
LOC: OR 10:39
PROVIDERS: ATTEND Orthopaedic Surgery Hand Surgery
DX: M65.331 Trigger finger, right middle finger (principal); M19.041 Primary osteoarthritis, right hand; K58.1 Irritable bowel syndrome with constipation; F32.9 Major depressive disorder, single episode, unspecified; Z79.899 Other long term (current) drug therapy
CPT/HCPCS: 26055; J2250; J2405; J2001; J3010; J2704

== ENCOUNTER → 2021-04-02 | Outpatient (CLI) | payer BC ==
--- NOTE | 2021-04-03 10:31 | MM ---
Reason for exam: clinical finding. Last mammogram was performed 4 years and 11 months ago. History: Retro-pectoral silicone gel implants in both breasts, 2011. Retro-pectoral saline implants in both breasts, 1997. Physical Findings: Nurse did not find any significant physical abnormalities on exam. MG 3D Diag Mammo Imp W/Cad W[place]ATT Bilateral CC, MLO, and ID view(s) were taken. Prior study comparison: May 01, 2016, bilateral MG diag mamm implants WYATT w CAD. December 16, 2011, CAD bilateral diagnostic mammogram. There are scattered fibroglandular densities. Bilateral breast prothesis. No significant new findings when compared with previous films. These results were verbally communicated with the patient and result sheet given to the patient on 04/02/21. ASSESSMENT: Benign, BI-RAD 2 RECOMMENDATION: Routine screening mammogram of both breasts in 1 year. Manage on a clinical basis with regard to nipple pain.
== END | disposition home or self-care (01) ==
LOC: RADMAMWWP 14:48
PROVIDERS: ATTEND Obstetrics & Gynecology
DX: R92.8 Other abnormal and inconclusive findings on diagnostic imaging of breast (principal); Z98.82 Breast implant status
CPT/HCPCS: 77062; 77066

== ENCOUNTER → 2021-09-29 | Outpatient (CLI) | payer BC ==
[2021-09-29 23:15] LABS: ALT 54 U/L (8-44); AST 25 U/L (13-35); African American GFR (CKD) 87.3 (60.0-200.0); Albumin 4.7 g/dL (3.8-4.9); Alkaline Phosphatase 132 U/L (41-126); BUN/Creat Ratio 18.79 Ratio (12.00-20.00); Blood Urea Nitrogen 16.2 mg/dL (9.0-27.0); Calcium 9.5 mg/dL (8.7-10.3); Carbon Dioxide 27.5 mmol/L (20.0-27.5); Chloride 103 mmol/L (96-109); Globulin 2.1 g/dL (1.6-3.3); Glucose 100 mg/dL (70-110); Non-African American GFR(CKD) 75.3 (60.0-200.0); Potassium 3.9 mmol/L (3.5-5.5); Sodium 142 mmol/L (135-145); Total Bilirubin <0.15 mg/dL (0.30-1.20); Total Protein 6.8 g/dL (6.2-8.2)
[2021-09-29 23:26] LABS: HGB 15.8 g/dL (12.0-15.0); MCH 31.2 pg (27.0-32.0); MCHC 32.9 g/dL (32.0-37.0); MCV 94.7 fL (80.0-97.0); Mean Platelet Volume 10.1 fL (9.5-12.2); NRBC Per 100 WBC 0 /100 WBCS (0.0-0.0); Platelet Count 231 X 10*3/uL (140-440); RBC 5.07 X 10*6/uL (4.10-5.20); RDW 13.9 % (11.5-14.5); WBC 9.55 X 10*3/uL (4.50-10.00)
== END | disposition home or self-care (01) ==
LOC: LABWHC1 15:51
PROVIDERS: ATTEND Internal Medicine
DX: R63.4 Abnormal weight loss (principal)
CPT/HCPCS: 36415; 80053; 82672; 83036; 84144; 84439; 84443; 84481; 85027

== ENCOUNTER → 2021-10-03 | Outpatient (CLI) | payer BC ==
--- NOTE | 2021-10-03 09:50 | CT ---
EXAMINATION TYPE: CT sinus wo con DATE OF EXAM: 10/03/2021 COMPARISON: None HISTORY: Chronic Sinusitis CT DLP: 628.7 mGycm. Automated Exposure Control for Dose Reduction was Utilized. TECHNIQUE: CT scan of the sinuses is performed without contrast, axial images are obtained, coronal r eformatted images are also reviewed. FINDINGS: There is mucosal thickening with an the bilateral maxillary sinuses. Air-fluid levels noted on the axial image. The ostiomeatal complex is patent bilaterally on the coronal images. Visualized portion of mastoid air cells show no abnormal opacification. The globes are intact bilate rally. Nasal septal deviation noted. IMPRESSION: 1. Mild bilateral maxillary acute sinusitis. The ostiomeatal complex is patent bilaterally.
== END | disposition home or self-care (01) ==
LOC: RADCTMAIN 07:17
PROVIDERS: ATTEND Otolaryngology
DX: J01.00 Acute maxillary sinusitis, unspecified (principal)
CPT/HCPCS: 70486

== ENCOUNTER → 2021-10-20 | Outpatient (CLI) | payer BC ==
--- NOTE | 2021-10-20 09:10 | US ---
EXAMINATION TYPE: US abdomen limited DATE OF EXAM: 10/20/2021 COMPARISON: NONE CLINICAL HISTORY: R22.2 LOCALIZED SWELLING, MASS AND LUMP, TRUNK. Patient states feeling a soft area at right flank EXAM MEASUREMENTS: Liver Length: 15.7 cm Gallbladder Wall: 0.2 cm CBD: 0.4 cm Right Kidney: 9.4 x 5.5 x 3.3 cm Pancreas: wnl Liver: wnl Gallbladder: polyp= 0.3 x 0.2 x 0.3 cm Evidence for sonographic Sr's sign: neg CBD: wnl Right Kidney: No hydronephrosis or masses seen Area of concern scanned. No prominent masses or lesions seen. Valsalva performed IMPRESSION: 1. Cholelithiasis versus gallbladder polyp. 2. No suspicious soft tissue abnormality at the palpable region.
== END | disposition home or self-care (01) ==
LOC: RADUSWWP 08:20
PROVIDERS: ATTEND Internal Medicine
DX: R22.2 Localized swelling, mass and lump, trunk (principal)
CPT/HCPCS: 76705

== ENCOUNTER → 2021-10-31 | Outpatient (CLI) | payer BC ==
[2021-10-31 17:58] LABS: ALT 84 U/L (8-44); AST 44 U/L (13-35); Albumin 4.6 g/dL (3.8-4.9); Albumin/Globulin Ratio 1.84 (1.60-3.17); Alkaline Phosphatase 145 U/L (41-126); Bilirubin, Conjugated <0.20 mg/dL (0.20-0.40); Chol/HDL Ratio 2.52 Ratio; Globulin 2.5 g/dL (1.6-3.3); LDL Cholesterol,Calculated 124.6 mg/dL (0.0-131.0); Total Protein 7.1 g/dL (6.2-8.2); VLDL Calculation 10.02 mg/dL (5.00-40.00)
== END ==
LOC: LABWHC1 11:56
PROVIDERS: ATTEND Internal Medicine
DX: E78.5 Hyperlipidemia, unspecified (principal)
CPT/HCPCS: 36415; 80061; 80076

== ENCOUNTER → 2021-11-13 | Outpatient (CLI) | payer BC | END | disposition home or self-care (01) | LOC: LABWHC1 13:21 | PROVIDERS: ATTEND Otolaryngology | DX: J30.89 Other allergic rhinitis (principal) | CPT/HCPCS: 36415; 86001 ==

== ENCOUNTER → 2021-11-26 | Outpatient (CLI) | payer BC ==
--- NOTE | 2021-11-27 18:14 | MM ---
Reason for Exam: Screening (asymptomatic). Last screening mammogram was performed 8 month(s) ago. Patient History: Menarche at age 15. First Full-Term at age 21. Postmenopausal. 1997, Bilateral Implants. 2011, Bilateral Implants. Risk Values: Joanne 5 year model risk: 1.0%. NCI Lifetime model risk: 6.6%. Prior Study Comparison: 12/16/2011 Bilateral Diagnostic Mammogram, [facility]. 05/01/2016 Bilateral Diagnostic Mammogram, [facility]. 04/02/2021 Bilateral Diagnostic Mammogram, [facility]. Tissue Density: There are scattered fibroglandular densities. Findings: Analyzed By CAD. Bilateral retropectoral silicone implants. No significant change from prior exams. Some interval decrease in overall breast size from prior exam suggests weight loss. Clinically correlate. Overall Assessment: Benign, BI-RAD 2 Management: Screening Mammogram of both breasts in 1 year. 1. Patient should continue monthly self breast exams. 2. A clinical breast exam by your physician is recommended on an annual basis. 3. This exam should not preclude additional follow-up of suspicious palpable abnormalities. Electronically signed and approved by: Kayla Ordonez M.D. Radiologist
== END | disposition home or self-care (01) ==
LOC: RADMAMWWP 14:59
PROVIDERS: ATTEND Obstetrics & Gynecology
DX: Z12.31 Encounter for screening mammogram for malignant neoplasm of breast (principal); Z78.0 Asymptomatic menopausal state
CPT/HCPCS: 77067

== ENCOUNTER → 2022-01-29 | Outpatient (CLI) | payer BC ==
--- NOTE | 2022-01-29 13:30 | XR ---
EXAMINATION TYPE: XR knee limited bilateral DATE OF EXAM: 01/29/2022 1:24 PM INDICATION: Patient age:Female; 56 years old; Reason for study: M25.562 PAIN IN LEFT KNEE, M25.561 PAIN IN RIGHT K; [facility]. COMPARISON: None TECHNIQUE: Both knees were examined in frontal and lateral positions. FINDINGS: No evidence of any acute osseous pathology, joint space narrowing, soft tissue swelling, or joint effusion is noted. IMPRESSION: No acute osseous pathology.
== END | disposition home or self-care (01) ==
LOC: RADXRMAIN 12:55
PROVIDERS: ATTEND Internal Medicine
DX: M25.562 Pain in left knee (principal); M25.561 Pain in right knee

== ENCOUNTER → 2022-09-10 | Outpatient (CLI) | payer BC ==
--- NOTE | 2022-09-11 06:29 | US ---
EXAMINATION TYPE: US pelvic complete DATE OF EXAM: 09/10/2022 COMPARISON: CT abdomen and pelvis 2016 CLINICAL INDICATION: Female, 56 years old with history of R10.9 FLANK PAIN, R10.2 PELVIC PAIN; LT MALDONADO ED PELVIC PAIN X 1 WEEK TECHNIQUE: Transvaginal (TV) and Transabdominal (TA) . Transabdominal sonographic images of the pel vis were acquired. Transvaginal sonographic images were medically necessary to better assess the fol lowing anatomy: Ovaries Date of LMP: POST IVETT X 6 YRS,ON HRT EXAM MEASUREMENTS: Uterus: 8.6X4.3X5.4 cm Endometrial Stripe: 0.93 cm Right Ovary: Obscured by overlying bowel gas Left Ovary: Obscured by overlying bowel gas 1. Uterus: Anteverted SEVERAL FIBROIDS VISUALIZED, LARGEST 3 MEASURED 1.) RT INF POSTERIOR: 2.4X2.3X2.8 2.) LT/MID ANTERIOR AM[place]OU: 1.7X1.8X2.0 3.) RT MID POSTERIOR: 2.1X1.6X2.1 2. Endometrium: SLIGHTLY THICKENED, PT ON HRT, 1CM ENDO CALC MEASURED IN AMADOU 3. Right Ovary: Obscured by overlying bowel gas 4. Left Ovary: Obscured by overlying bowel gas 5. Bilateral Adnexa: Obscured by overlying bowel gas, DILATED VESSELS NOTED IN LT ADN 6. Posterior cul-de-sac: FREE FLUID NOTED Anteverted prominent lobulated fibroid uterus is redemonstrated. Several distinct fibroids are measur ed, measuring between 2.0 and 3.0 cm in size. Endometrial stripe difficult to distinctly visualize, s lightly thickened for postmenopausal female on hormone replacement therapy. Tiny amount of free fluid in the pelvis is seen. Neither ovary clearly seen. Prominent vessel noted in the left adnexa. IMPRESSION: Fibroid uterus redemonstrated. Possible left-sided pelvic congestion syndrome which could cause pain. Slight abnormal thickening of endometrium. Advise endovascular surgical referral. Follow -up advised if the patient has symptoms of bleeding.
== END | disposition home or self-care (01) ==
LOC: RADUSWWP 15:29
PROVIDERS: ATTEND Internal Medicine
DX: D25.9 Leiomyoma of uterus, unspecified (principal); N85.00 Endometrial hyperplasia, unspecified
CPT/HCPCS: 76856

== ENCOUNTER → 2022-09-15 | Outpatient (CLI) | payer BC | END | disposition home or self-care (01) | LOC: LABWHC1 13:16 | PROVIDERS: ATTEND Internal Medicine | DX: Z82.79 Family history of other congenital malformations, deformations and chromosomal abnormalities (principal) | CPT/HCPCS: 36415 ==

== ENCOUNTER → 2023-02-19 | Outpatient (CLI) | payer BC ==
--- NOTE | 2023-02-19 15:54 | MM ---
Reason for Exam: Screening (asymptomatic). Last mammogram was performed 1 year(s) and 2 month(s) ago. Patient History: Menarche at age 15. First Full-Term at age 21. Postmenopausal. 1997, Bilateral Implants. 2011, Bilateral Implants. Risk Values: Joanne 5 year model risk: 1.1%. NCI Lifetime model risk: 6.3%. Prior Study Comparison: 05/01/2016 Bilateral Diagnostic Mammogram, [facility]. 04/02/2021 Bilateral Diagnostic Mammogram, [facility]. 11/26/2021 Bilateral MG screening mammo implant/CAD, [facility]. Tissue Density: There are scattered fibroglandular densities. Findings: Analyzed By CAD. There is no suspicious group of microcalcifications or new suspicious mass in either breast. Bilateral retropectoral silicone breast implants. Benign calcifications left breast. Overall Assessment: Benign, BI-RAD 2 Management: Screening Mammogram of both breasts in 1 year. A clinical breast exam by your physician is recommended on an annual basis and results should be correlated with mammographic findings. Note on Joanne scores and lifetime risk: 1. A Joanne score greater than 3% is considered moderate risk. If this is the case, consider specialist referral to assess eligibility for a risk reducing agent. If overall lifetime risk for the development of breast cancer is 20% or higher, the patient may qualify for future screening with alternating mammogram and breast MRI. Electronically signed and approved by: Ismael Collazo D.O.
== END | disposition home or self-care (01) ==
LOC: RADMAMWWP 15:11
PROVIDERS: ATTEND Obstetrics & Gynecology
DX: Z12.31 Encounter for screening mammogram for malignant neoplasm of breast (principal); Z78.0 Asymptomatic menopausal state
CPT/HCPCS: 77063; 77067

== ENCOUNTER → 2023-04-02 | Outpatient (CLI) | payer BC ==
[2023-04-02 18:26] LABS: Basophils # (A) 0.05 X 10*3/uL (0.00-0.10); Basophils % (A) 0.9 %; Eosinophils # (A) 0.08 X 10*3/uL (0.04-0.35); Eosinophils % (A) 1.5 %; HCT 42.7 % (37.2-46.3); HGB 13.9 g/dL (12.0-15.0); Lymphocytes # (A) 1.36 X 10*3/uL (0.90-5.00); Lymphocytes % (A) 25.5 %; MCH 30.8 pg (27.0-32.0); MCHC 32.6 g/dL (32.0-37.0); MCV 94.7 FL (80.0-97.0); Mean Platelet Volume 10.1 FL (9.5-12.2); Monocytes # (A) 0.29 X 10*3/uL (0.20-1.00); Monocytes % (A) 5.4 %; NRBC Per 100 WBC 0 X 10*3/uL (0.00-0.01); Neutrophils # (A) 3.55 X 10*3/uL (1.80-7.70); Neutrophils % (A) 66.5 %; Platelet Count 277 X 10*3/uL (140-440); RBC 4.51 X 10*6/uL (4.10-5.20); RDW 12.5 % (11.5-14.5); WBC 5.34 X 10*3/uL (4.50-10.00)
[2023-04-02 18:51] LABS: ALT 23 U/L (8-44); AST 20 U/L (13-35); Albumin 4.2 g/dL (3.8-4.9); Albumin/Globulin Ratio 1.62 Ratio (1.60-3.17); Alkaline Phosphatase 104 U/L (41-126); BUN/Creat Ratio 25.17 Ratio (12.00-20.00); Blood Urea Nitrogen 15.1 mg/dL (9.0-27.0); Calcium 9.4 mg/dL (8.7-10.3); Carbon Dioxide 25.7 mmol/L (21.6-31.8); Chloride 107 mmol/L (96-109); Chol/HDL Ratio 3.06 Ratio; Globulin 2.6 g/dL (1.6-3.3); Glucose 98 mg/dL (70-110); LDL Cholesterol,Calculated 136.3 mg/dL (0.0-131.0); Potassium 4.1 mmol/L (3.5-5.5); Sodium 144 mmol/L (135-145); T4, Free (Free Thyroxine) 1.31 ng/dL (0.80-1.80); Total Bilirubin 0.3 mg/dL (0.3-1.2); Total Protein 6.8 g/dL (6.2-8.2); VLDL Calculation 13.18 mg/dL (5.00-40.00)
== END | disposition home or self-care (01) ==
LOC: LABWHC1 13:21
PROVIDERS: ATTEND Internal Medicine
DX: R53.83 Other fatigue (principal)
CPT/HCPCS: 36415; 80053; 80061; 82607; 82746; 84207; 84439; 84443; 85025

== ENCOUNTER 2023-05-16 15:06 | Emergency (ER) | payer BC ==
[2023-05-16] MEDS ORDERED: IBUPROFEN 800 MG TAB PO STA (15:24)
--- NOTE | 2023-05-16 15:29 | ED ---
Fall HPI - General Chief Complaint: Fall Stated Complaint: Fall Time Seen by Provider: 05/16/23 15:13 Source: patient, family, RN notes reviewed Mode of arrival: wheelchair Limitations: no limitations - History of Present Illness Initial Comments: This is a 57-year-old female who presents to the emergency department for a fall. States that she tripped and fell last night, injuring her right knee, right foot, and lower back. When she fell, she landed on her bottom with her right leg bent. States that her right knee pain is the most bothersome and she is having difficulty fully straightening the leg. Denies hitting her head or sustaining any loss of consciousness. She has not taken any medication for her pain. MD Complaint: fall - Related Data Home Medications Medication Instructions Recorded Confirmed Ibuprofen [Motrin] 200 - 400 mg PO Q6HR PRN 03/23/16 03/12/21 Xywav 1 dose PO HS 03/12/21 modafiniL [Provigil] 1 tab PO DAILY 03/12/21 03/12/21 Previous Rx's Medication Instructions Recorded Ibuprofen [Motrin] 800 mg PO Q8H PRN #30 tab 05/16/23 Lidocaine 5% Patch [Lidoderm 5% 1 patch TOPICAL DAILY PRN #30 patch 05/16/23 Patch] methocarbamoL [Robaxin-750] 750 mg PO QID PRN #30 tab 05/16/23 Allergies Allergy/AdvReac Type Severity Reaction Status Date / Time No Known Allergies Allergy Verified 04/14/16 14:57 Review of Systems ROS Statement: Those systems with pertinent positive or pertinent negative responses have been documented in the HPI. ROS Other: All systems not noted in ROS Statement are negative. Past Medical History Past Medical History: No Reported History Additional Past Medical History / Comment(s): IBS-constipation,hx polyps,PM>1yr History of Any Multi-Drug Resistant Organisms: None Reported Additional Past Surgical History / Comment(s): Breast implants,tummy tuck CARPAL TUNNEL RT HAND Past Anesthesia/Blood Transfusion Reactions: Motion Sickness Past Psychological History: No Psychological Hx Reported, Depression Smoking Status: Never smoker Past Alcohol Use History: Occasional Past Drug Use History: None Reported - Past Family History Mother Family Medical History: Diabetes Mellitus Father History Unknown: Yes Son(s) Additional Family Medical History / Comment(s): Marfan's Syndrome Brother(s) Family Medical History: Cancer Additional Family Medical History / Comment(s): Leukemia General Exam Limitations: no limitations General appearance: alert, in no apparent distress Head exam: Present: atraumatic, normocephalic, normal inspection Respiratory exam: Present: normal lung sounds bilaterally. Absent: respiratory distress, wheezes, rales, rhonchi, stridor Cardiovascular Exam: Present: regular rate, normal rhythm, normal heart sounds. Absent: systolic murmur, diastolic murmur, rubs, gallop, clicks Extremities exam: Present: other (Tenderness to palpation over the medial aspect of the right patella. Range of motion limited by pain. No overlying deformities. Tenderness to palpation over the medial aspect of the right great toe spreading proximally. Full ROM. No deformities.) Back exam: Present: tenderness (Lower lumbar spine) Neurological exam: Present: alert, oriented X3, CN II-XII intact Psychiatric exam: Present: normal affect, normal mood Skin exam: Present: warm, dry, intact, normal color. Absent: rash Course Vital Signs 05/16/23 05/16/23 15:08 17:43 Temperature 97.5 F L 98.1 F Pulse Rate 80 78 Respiratory 20 18 Rate Blood Pressure 152/84 148/78 O2 Sat by Pulse 99 99 Oximetry Medical Decision Making - Medical Decision Making This is a 57-year-old female who presents to the emergency department for a fall. Was pt. sent in by a medical professional or institution? @ -No Did you speak to anyone other than the patient for history? @ -No Did you review nursing and triage notes? @ -Yes, and I agree, it is accurate with regards to the patient's symptoms. Were old charts reviewed? @ -No Differential Diagnosis? @ -Differential Musculoskeletal: Muscular strain, contusion, ligament sprain, fracture, arthritis, septic arthritis, bursitis, cellulitis, muscle spasm, nerve compression, DVT, arterial occlusion, herpes zoster, electrolyte abnormality, tumor.... This is not meant to be in all inclusive list EKG interpreted by me (3pts min.)? @ -Not obtained X-rays interpreted by me (1pt min.)? @ -X-ray of the right knee, right foot, lumbar spine, and sacrum/coccyx obtained. My interpretation of all x-rays identifies no acute fractures. CT interpreted by me (1pt min.)? @ -Not obtained U/S interpreted by me (1pt. min.)? @ -Not obtained What testing was considered but not performed? (CT, X-rays, U/S, labs)? Why? @ -None What meds were considered but not given? Why? @ -None Did you discuss the management of the patient with other professionals? @ -No Did you reconcile home meds? @ -No Was smoking cessation discussed for >3mins.? @ -No Was critical care preformed (if so, how long)? @ -No Were there social determinants of health that impacted care today? How? (Homelessness, low income, unemployed, alcoholism, drug addiction, transportation, low edu. Level, literacy, decrease access to med. care, retirement, rehab)? @ -No Was there de-escalation of care discussed even if they declined? (Discuss DNR or withdrawal of care, Hospice)? @ -No What co-morbidities impacted this encounter? (DM, HTN, Smoking, COPD, CAD, Cancer, CVA, Hep., AIDS, mental health diagnosis, sleep apnea, morbid obesity)? @ -None Was patient admitted / discharged? @ -Discharged. X-ray of the right knee, right foot, lumbar spine, and sacrum coccyx obtained. No acute injuries were noted on any of the images. Ibuprofen administered for pain relief. The patient declined any stronger medication in the emergency department. Knee immobilizer applied for support. Rx for Ibuprofen, Robaxin, and lidocaine patches provided with dosing instructions reviewed. She is advised to take the Ibuprofen with Tylenol and apply ice to the effected areas for 10-15 minutes every 2-3 hours for the first 2-3 days, followed by heat there afterwards. Undiagnosed new problem with uncertain prognosis? @ -None Drug Therapy requiring intensive monitoring for toxicity (Heparin, Nitro, Insulin, Cardizem)? @ -None Were any procedures done? @ -None Diagnosis/symptom? @ -Fall, Right knee sprain, lumbar contusion Acute, or Chronic, or Acute on Chronic? @ -Acute Uncomplicated (without systemic symptoms) or Complicated (systemic symptoms)? @ -Uncomplicated Side effects of treatment? @ -None Exacerbation, Progression, or Severe Exacerbation] @ -Not applicable Poses a threat to life or bodily function? @ -The pain may limit her ability to ambulate for the mean time. Return precautions reviewed in depth, the patient is instructed to return to the emergency department with any new, worsening, or concerning symptoms. Patient verbalized understanding. This case was discussed in detail with the attending ED physician, Dr. Perkins. Presentation, findings, and treatment plan discussed in detail as well. - Radiology Data Radiology results: report reviewed, image reviewed Disposition Clinical Impression: Fall, Knee sprain, Lumbar contusion Disposition: HOME SELF-CARE Instructions (If sedation given, give patient instructions): Knee Sprain (ED), Knee Immobilizer (ED) Additional Instructions: Return to the emergency department with any new, worsening, or concerning symptoms. Alternate with ibuprofen and Tylenol as needed for pain relief. Apply ice for 10-15 minutes every 2-3 hours for the first 2-3 days followed by heat thereafterwards. You can take the Robaxin as 1-2 tablets up to 3-4 times daily. Be aware that this may make you drowsy. You can apply the lidocaine patches daily as well. Follow up with your primary care provider in 1-2 days. Prescriptions: Lidocaine 5% Patch [Lidoderm 5% Patch] 1 patch TOPICAL DAILY PRN #30 patch PRN Reason: Pain Ibuprofen [Motrin] 800 mg PO Q8H PRN #30 tab PRN Reason: Pain methocarbamoL [Robaxin-750] 750 mg PO QID PRN #30 tab PRN Reason: Pain Is patient prescribed a controlled substance at d/c from ED?: No Referrals: None,Stated [Primary Care Provider] - 1-2 days Time of Disposition: 17:25
--- NOTE | 2023-05-16 17:10 | XR ---
EXAMINATION TYPE: XR lumbar spine 2 or 3V DATE OF EXAM: 05/16/2023 3:40 PM CLINICAL INDICATION:Female, 57 years old with history of Pain after fall; H COMPARISON: None TECHNIQUE: XR lumbar spine 2 or 3V - 3 views lumbar spine, frontal lateral and coned down lateral lum bosacral junction FINDINGS: Small ribs at T12. 5 lumbar vertebral bodies. No evidence of any acute osseous pathology. No evidence of loss of vertebral body height is seen. Mild degenerative change of the upper lumbar le vels, mild to moderate degenerative disk disease and facet arthrosis L4-5 and L5-S1. Overall mild str aightening of the normal lumbar lordosis. No significant listhesis. There is mild apex right scoliosi s centered at L3. IMPRESSION: 1. No evidence of compression fracture. 2. Mild/moderate lumbar spondylosis.
--- NOTE | 2023-05-16 17:13 | XR ---
EXAMINATION TYPE: XR sacrum coccyx DATE OF EXAM: 05/16/2023 3:40 PM CLINICAL INDICATION:Female, 57 years old with history of Pain after fall; [facility] COMPARISON: None TECHNIQUE: The sacrum and coccyx was examined in frontal and lateral projections. FINDINGS: There is deformity of the distal sacrum/proximal coccyx with anterior angulation of the dominguez cyx, favored to represent a remote injury. Otherwise no definite evidence of acute fracture or disloc ation. There is no soft tissue abnormality. No abnormal calcifications are present. Multilevel degen erative changes of the lower spine. IMPRESSION: * Deformity of the upper coccyx favored to represent remote injury. * No acute osseous pathology otherwise seen.
--- NOTE | 2023-05-16 17:15 | XR ---
EXAMINATION TYPE: XR knee complete RT DATE OF EXAM: 05/16/2023 3:40 PM CLINICAL INDICATION:Female, 57 years old with history of Pain after fall; [facility] COMPARISON: None. TECHNIQUE: XR knee complete RT; examined in Frontal, lateral and oblique projections. FINDINGS: Osseous mineralization appears appropriate. No evidence of destructive lesion or aggressive periostit is. No acute fracture or dislocation. Joint spaces appear maintained. Unremarkable soft tissues witho ut significant joint effusion or radiopaque foreign body seen. IMPRESSION: No acute fracture or dislocation.
--- NOTE | 2023-05-16 17:17 | XR ---
EXAMINATION TYPE: XR foot complete RT DATE OF EXAM: 05/16/2023 3:40 PM CLINICAL INDICATION:Female, 57 years old with history of Pain after fall; [facility] COMPARISON: None. TECHNIQUE: Three views foot were obtained. FINDINGS: No evidence of fracture or significant malalignment. Joint spaces are maintained. Small plantar calca satya spur. Soft tissues are unremarkable. No radiopaque foreign body is seen. IMPRESSION: No evidence of acute fracture or dislocation.
[2023-05-16] MEDS ORDERED: LIDOCAINE 4% PATCH TOPICAL ONE (17:21)
[2023-05-16] MEDS ORDERED: IBUPROFEN 600 MG STARTER PACK 4 TAB BTL PO STA (17:25)
[2023-05-16] MEDS ORDERED: CYCLOBENZAPRINE 10MG STARTER 3 TAB BTL PO STA (17:25)
[2023-05-16 18:00] VITALS: BP 148/78; PULSE 78; RESP 18; TEMP 98.1
== END 2023-05-16 17:51 | disposition home or self-care (01) ==
LOC: EC 15:06
DX: S83.91XA Sprain of unspecified site of right knee, initial encounter (principal); S30.0XXA Contusion of lower back and pelvis, initial encounter; W01.0XXA Fall on same level from slipping, tripping and stumbling without subsequent striking against object, initial encounter
CPT/HCPCS: 72100; 72220; 73562; 73630; 99283; L1830

== ENCOUNTER 2023-11-19 16:18 | Observation (INO) | payer BC ==
[2023-11-19 17:05] LABS: Basophils # (A) 0.1 k/uL (0-0.2); Basophils % (A) 1 %; Eosinophils # (A) 0.2 k/uL (0-0.7); Eosinophils % (A) 3 %; HCT 41.4 % (34.0-46.0); HGB 14.1 gm/dL (11.4-16.0); Lymphocytes # (A) 1.4 k/uL (1.0-4.8); Lymphocytes % (A) 26 %; MCH 32.3 pg (25.0-35.0); MCV 94.8 fL (80.0-100.0); Monocytes # (A) 0.3 k/uL (0-1.0); Monocytes % (A) 5 %; Neutrophils # (A) 3.4 k/uL (1.3-7.7); Neutrophils % (A) 64 %; Platelet Count 248 k/uL (150-450); RBC 4.36 m/uL (3.80-5.40); RDW 12.7 % (11.5-15.5); WBC 5.3 k/uL (3.8-10.6)
[2023-11-19 17:20] LABS: INR 0.9 (<1.2); Partial Thromboplastin Time 24.2 sec (22.0-30.0); Prothrombin Time 10.3 sec (10.0-12.5)
[2023-11-19 17:24] LABS: ALT 27 U/L (4-34); AST 27 U/L (14-36); African American GFR (CKD) >90 (>60 ml/min/1.73 sqM); Albumin 4.2 g/dL (3.5-5.0); Alkaline Phosphatase 130 U/L (38-126); Anion Gap 5 mmol/L; Blood Urea Nitrogen 21 mg/dL (7-17); Calcium 9.3 mg/dL (8.4-10.2); Carbon Dioxide 26 mmol/L (22-30); Chloride 107 mmol/L (98-107); Glucose 92 mg/dL (74-99); Non-African American GFR(CKD) >90 (>60 ml/min/1.73 sqM); Sodium 138 mmol/L (137-145); Total Bilirubin 0.4 mg/dL (0.2-1.3); Total Protein 6.7 g/dL (6.3-8.2)
--- NOTE | 2023-11-19 17:40 | XR ---
EXAMINATION TYPE: XR chest 2V DATE OF EXAM: 11/19/2023 5:01 PM CLINICAL INDICATION:Female, 57 years old with history of Chest Pain; [facility] COMPARISON: Chest radiographs from 07/06/2018 TECHNIQUE: XR chest 2V Frontal and lateral views of the chest. FINDINGS: Lungs/Pleura: There is no evidence of pleural effusion, focal consolidation, or pneumothorax. Pulmonary vascularity: Unremarkable. Heart/mediastinum: Cardiomediastinal silhouette is unremarkable. Musculoskeletal: No acute osseous pathology. Other findings: None Lines/Tubes: IMPRESSION: No acute cardiopulmonary disease/process.
[2023-11-19] MEDS: ASPIRIN 81 MG PO STA (18:14)
[2023-11-19] MEDS: NITROGLYCERIN SL TABS 0.4 MG TAB SUBLINGUAL STA (18:15)
[2023-11-19] MEDS: SODIUM CHLORIDE 0.9% 1,000 ML IV STA (18:32)
[2023-11-19] MEDS ORDERED: NALOXONE 0.4 MG/ML 1 ML VIAL IV PRN (19:36)
[2023-11-19] MEDS ORDERED: ONDANSETRON 4 MG/2 ML VIAL IVP PRN (19:36)
--- NOTE | 2023-11-19 19:38 | ED ---
General Adult HPI - General Chief complaint: Chest Pain Stated complaint: Chest Pressure,SOB Time Seen by Provider: 11/19/23 19:00 Source: patient, RN notes reviewed, old records reviewed Mode of arrival: ambulatory Limitations: no limitations - History of Present Illness Initial comments: Patient is a 57-year-old female presents emergency department complaining of chest pain pressure. Maybe some mild shortness of breath as well. States that the chest pain is over the left chest. Has been mildly there over the last few days but worsened today. No radiation. No nausea or vomiting. No diaphoresis. No significant cardiac history for self. Does not smoke. No alcohol abuse. Patient does have family history consistent for CAD in her father. Presents for further evaluation at this time. - Related Data Home Medications Medication Instructions Recorded Confirmed No Known Home Medications 11/19/23 11/19/23 Allergies Allergy/AdvReac Type Severity Reaction Status Date / Time No Known Allergies Allergy Verified 11/19/23 19:07 Review of Systems ROS Statement: Those systems with pertinent positive or pertinent negative responses have been documented in the HPI. Review of Systems: CONST: Denies fever EYES: Denies blurry vision ENT: Denies nasal congestion C/V: Endorses chest pain RESP: Denies shortness of breath GI: Denies abdominal pain : Denies dysuria SKIN: Denies rash. MSK: Denies joint pain. NEURO: Denies headache ROS Other: All systems not noted in ROS Statement are negative. Past Medical History Past Medical History: No Reported History Additional Past Medical History / Comment(s): IBS-constipation,hx polyps,PM>1yr History of Any Multi-Drug Resistant Organisms: None Reported Additional Past Surgical History / Comment(s): Breast implants,tummy tuck CARPAL TUNNEL RT HAND Past Anesthesia/Blood Transfusion Reactions: Motion Sickness Past Psychological History: No Psychological Hx Reported, Depression Smoking Status: Never smoker Past Alcohol Use History: Occasional Past Drug Use History: None Reported - Past Family History Mother Family Medical History: Diabetes Mellitus Father History Unknown: Yes Son(s) Additional Family Medical History / Comment(s): Marfan's Syndrome Brother(s) Family Medical History: Cancer Additional Family Medical History / Comment(s): Leukemia General Exam - General Exam Comments Initial Comments: General: Appears in no acute distress. HEAD: Normal with no signs of head trauma. EYES: PERRLA, EOMI, conjunctiva normal, no discharge. ENT: Hearing grossly intact, normal oropharynx. RESPIRATORY: Clear breath sounds bilaterally. No wheezes, rales, or rhonchi. C/V: Regular rate and rhythm. S1 and S2 auscultated, no edema, peripheral pulses 2+ and intact throughout ABD: Abd is soft, nontender, nondistended EXT: Normal range of motion, no obvious deformity SKIN: No rashes or lesions observed on exposed skin. NEURO: Alert and oriented x 4. Cranial nerves II-XII intact. No focal sensory or strength deficits. Limitations: no limitations Course Vital Signs 11/19/23 16:29 Temperature 97.7 F Pulse Rate 72 Respiratory 18 Rate Blood Pressure 144/87 O2 Sat by Pulse 97 Oximetry Medical Decision Making - Medical Decision Making Was pt. sent in by a medical professional or institution (, PA, PLANNING DIVISION SUPERINTENDENT, urgent care, hospital, or jail...) When possible be specific @ -No Did you speak to anyone other than the patient for history (EMS, parent, family, police, friend...)? What history was obtained from this source @ -No Did you review nursing and triage notes (agree or disagree)? Why? @ -I reviewed and agree with nursing and triage notes Were old charts reviewed (outside hosp., previous admission, EMS record, old EKG, old radiological studies, urgent care reports/EKG's, jail records)? Report findings @ -Stress EKG reviewed from November 2019 with no significant changes present today. Differential Diagnosis (chest pain, altered mental status, abdominal pain women, abdominal pain men, vaginal bleeding, weakness, fever, dyspnea, syncope, headache, dizziness, GI bleed, back pain, seizure, CVA, palpatations, mental health, musculoskeletal)? @ -Differential Chest Pain: Stable Angina, Unstable Angina, STEMI, NSTEMI Aortic Dissection, Pneumothorax, Musculoskeletal, Esophageal Spasm GERD, Cholecystitis, Pancreatitis, Zoster, this is not meant to be an all-inclusive list. EKG interpreted by me (3pts min.). @ -As above X-rays interpreted by me (1pt min.). @ -Chest x-ray shows no signs of acute cardiopulmonary process. CT interpreted by me (1pt min.). @ -None done U/S interpreted by me (1pt. min.). @ -None done What testing was considered but not performed or refused? (CT, X-rays, U/S, labs)? Why? @ -None What meds were considered but not given or refused? Why? @ -None Did you discuss the management of the patient with other professionals (professionals i.e. , PA, PLANNING DIVISION SUPERINTENDENT, lab, RT, psych nurse, social media campaign manager, staff counselor, teacher, lodge officer, patient case manager)? Give summary @ -No Was smoking cessation discussed for >3mins.? @ -No Was critical care preformed (if so, how long)? @ -No Were there social determinants of health that impacted care today? How? (Homelessness, low income, unemployed, alcoholism, drug addiction, transportation, low edu. Level, literacy, decrease access to med. care, long-term, re hab)? @ -No Was there de-escalation of care discussed even if they declined (Discuss DNR or withdrawal of care, Hospice)? DNR status @ -No What co-morbidities impacted this encounter? (DM, HTN, Smoking, COPD, CAD, Cancer, CVA, ARF, Chemo, Hep., AIDS, mental health diagnosis, sleep apnea, morbid obesity)? @ -Hypertension, family medical history of CAD Was patient admitted / discharged? Hospital course, mention meds given and route, prescriptions, significant lab abnormalities, going to OR and other pertinent info. @ -Patient presents emergency department for chest pain. Workup started in [facility]. Pain worsened today but has been present for multiple days. Left-sided. Patient will be given aspirin, as well as nitroglycerin. Also given 1 L fluid bolus. Patient agreement this plan. Workup so far remarkable for troponin of 0.021. EKG shows no signs of acute ischemia. Chest x-ray unremarkable. On reevaluation, nitroglycerin did resolve the patient's pain. She will be placed on Nitropaste. I did recommend observation admission. Heart score is borderline 3-4. Patient was in agreement this plan. I spoke with the admitting team, Dr. Lynch of [facility] [place] [facility] who accepted the admission. Cardiology consulted. Echo ordered. Undiagnosed new problem with uncertain prognosis? @ -No Drug Therapy requiring intensive monitoring for toxicity (Heparin, Nitro, I nsulin, Cardizem)? @ -No Were any procedures done? @ -No Diagnosis/symptom? @ -Chest pain Acute, or Chronic, or Acute on Chronic? @ -Acute Uncomplicated (without systemic symptoms) or Complicated (systemic symptoms)? @ -Complicated Side effects of treatment? @ -No Exacerbation, Progression, or Severe Exacerbation? @ -No Poses a threat to life or bodily function? How? (Chest pain, [place], CO, pneumonia, PE, COPD, DKA, ARF, appy, cholecystitis, CVA, Diverticulitis, Homicidal, Suicidal, threat to staff... and all critical care pts) @ -Potentially, yes - Lab Data Result diagrams: 11/19/23 16:53 11/19/23 16:53 Lab Results 11/19/23 11/19/23 11/19/23 Range/Units 16:53 16:53 16:53 WBC 5.3 (3.8-10.6) k/uL RBC 4.36 (3.80-5.40) m/uL Hgb 14.1 (11.4-16.0) gm/dL Hct 41.4 (34.0-46.0) % MCV 94.8 (80.0-100.0) fL MCH 32.3 (25.0-35.0) pg MCHC 34.0 (31.0-37.0) g/dL RDW 12.7 (11.5-15.5) % Plt Count 248 (150-450) k/uL MPV 7.0 Neutrophils % 64 % Lymphocytes % 26 % Monocytes % 5 % Eosinophils % 3 % Basophils % 1 % Neutrophils # 3.4 (1.3-7.7) k/uL Lymphocytes # 1.4 (1.0-4.8) k/uL Monocytes # 0.3 (0-1.0) k/uL Eosinophils # 0.2 (0-0.7) k/uL Basophils # 0.1 (0-0.2) k/uL PT 10.3 (10.0-12.5) sec INR 0.9 (<1.2) APTT 24.2 (22.0-30.0) sec Sodium 138 (137-145) mmol/L Potassium 4.0 (3.5-5.1) mmol/L Chloride 107 (98-107) mmol/L Carbon Dioxide 26 (22-30) mmol/L Anion Gap 5 mmol/L BUN 21 H (7-17) mg/dL Creatinine 0.54 (0.52-1.04) mg/dL Est GFR (CKD-EPI)AfAm >90 (>60 ml/min/1.73 sqM) Est GFR (CKD-EPI)NonAf >90 (>60 ml/min/1.73 sqM) Glucose 92 (74-99) mg/dL Calcium 9.3 (8.4-10.2) mg/dL Magnesium 2.0 (1.6-2.3) mg/dL Total Bilirubin 0.4 (0.2-1.3) mg/dL AST 27 (14-36) U/L ALT 27 (4-34) U/L Alkaline Phosphatase 130 H (38-126) U/L Troponin I (0.000-0.034) ng/mL Total Protein 6.7 (6.3-8.2) g/dL Albumin 4.2 (3.5-5.0) g/dL 11/19/23 Range/Units 16:53 WBC (3.8-10.6) k/uL RBC (3.80-5.40) m/uL Hgb (11.4-16.0) gm/dL Hct (34.0-46.0) % MCV (80.0-100.0) fL MCH (25.0-35.0) pg MCHC (31.0-37.0) g/dL RDW (11.5-15.5) % Plt Count (150-450) k/uL MPV Neutrophils % % Lymphocytes % % Monocytes % % Eosinophils % % Basophils % % Neutrophils # (1.3-7.7) k/uL Lymphocytes # (1.0-4.8) k/uL Monocytes # (0-1.0) k/uL Eosinophils # (0-0.7) k/uL Basophils # (0-0.2) k/uL PT (10.0-12.5) sec INR (<1.2) APTT (22.0-30.0) sec Sodium (137-145) mmol/L Potassium (3.5-5.1) mmol/L Chloride (98-107) mmol/L Carbon Dioxide (22-30) mmol/L Anion Gap mmol/L BUN (7-17) mg/dL Creatinine (0.52-1.04) mg/dL Est GFR (CKD-EPI)AfAm (>60 ml/min/1.73 sqM) Est GFR (CKD-EPI)NonAf (>60 ml/min/1.73 sqM) Glucose (74-99) mg/dL Calcium (8.4-10.2) mg/dL Magnesium (1.6-2.3) mg/dL Total Bilirubin (0.2-1.3) mg/dL AST (14-36) U/L ALT (4-34) U/L Alkaline Phosphatase (38-126) U/L Troponin I 0.021 (0.000-0.034) ng/mL Total Protein (6.3-8.2) g/dL Albumin (3.5-5.0) g/dL - EKG Data -: EKG Interpreted by Me EKG Comments: 12-lead Electrocardiogram Interpretation Note EKG was reviewed and interpreted by myself. 12-lead ECG performed at 1650 is interpreted by me as revealing normal sinus rhythm at a rate of 66 beats per minute. [place] is normal. CO interval is 135 ms, QRS durations 93 ms, QTc is 413 ms.. There were no ST or T wave abnormalities to suggest myocardial ischemia or injury. R wave progression across the precordium was satisfactory. By my interpretation this EKG is non-diagnostic for acute ischemia. Disposition Clinical Impression: Chest pain Disposition: ADMITTED IP TO THIS HOSP Condition: Stable Referrals: None,Stated [Primary Care Provider] - 1-2 days Time of Disposition: 19:30
[2023-11-19] MEDS: NITROGLYCERIN OINT 1 INCH/GM PACKET TOPICAL SCH (20:12)
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
[2023-11-19] MEDS: METOPROLOL TARTRATE 25 MG TAB PO SCH (21:10)
[2023-11-19] MEDS ORDERED: MORPHINE SULFATE 2 MG/ML SYRINGE IVP PRN (21:29)
[2023-11-19] MEDS: SODIUM CHLORIDE 0.9% 1,000 ML IV SCH (21:58)
[2023-11-20] MEDS ORDERED: HEPARIN SODIUM,PORCINE 5,000 UNIT/ML 1 ML VIAL SQ SCH
[2023-11-20 02:49] LABS: Chol/HDL Ratio 3.42 Ratio; LDL Cholesterol,Calculated 144.6 mg/dL (0.0-131.0)
[2023-11-20 03:16] LABS: ALT 23 U/L (4-34); AST 24 U/L (14-36); African American GFR (CKD) >90 (>60 ml/min/1.73 sqM); Albumin 3.8 g/dL (3.5-5.0); Albumin/Globulin Ratio 1.6; Alkaline Phosphatase 132 U/L (38-126); Anion Gap 6 mmol/L; Blood Urea Nitrogen 21 mg/dL (7-17); Calcium 8.9 mg/dL (8.4-10.2); Carbon Dioxide 23 mmol/L (22-30); Chloride 110 mmol/L (98-107); Globulin 2.4 g/dL; Glucose 92 mg/dL (74-99); Non-African American GFR(CKD) >90 (>60 ml/min/1.73 sqM); Potassium 3.4 mmol/L (3.5-5.1); Sodium 139 mmol/L (137-145); Total Bilirubin 0.3 mg/dL (0.2-1.3); Total Protein 6.2 g/dL (6.3-8.2)
[2023-11-20] MEDS: POTASSIUM CHLORIDE ER 20 MEQ TAB.ER PO STA (03:35)
[2023-11-20 03:49] LABS: Basophils % (A) 1 %; Eosinophils # (A) 0.2 k/uL (0-0.7); Eosinophils % (A) 3 %; HCT 40.1 % (34.0-46.0); HGB 13.3 gm/dL (11.4-16.0); Lymphocytes # (A) 1.9 k/uL (1.0-4.8); Lymphocytes % (A) 33 %; MCH 31.7 pg (25.0-35.0); MCHC 33.3 g/dL (31.0-37.0); MCV 95.2 fL (80.0-100.0); Mean Platelet Volume 7.4; Monocytes # (A) 0.3 k/uL (0-1.0); Monocytes % (A) 5 %; Neutrophils # (A) 3.2 k/uL (1.3-7.7); Neutrophils % (A) 57 %; Platelet Count 243 k/uL (150-450); RBC 4.21 m/uL (3.80-5.40); RDW 12.8 % (11.5-15.5); WBC 5.6 k/uL (3.8-10.6)
[2023-11-20] MEDS: IPRATROPIUM-ALBUTEROL 3 ML NEB INHALATION STA (06:05)
--- NOTE | 2023-11-20 08:33 | US ---
EXAMINATION TYPE: US abdomen complete DATE OF EXAM: 11/20/2023 COMPARISON: 10/20/2021 CLINICAL INDICATION: Female, 57 years old with history of Elevated ALP; elevated ALP TECHNIQUE: Multiple sonographic images of the abdomen are obtained. FINDINGS: EXAM MEASUREMENTS: Liver Length: 14.6 cm Gallbladder Wall: .3 cm CBD: .2 cm Spleen: 9.8 cm Right Kidney: 8.7 x 3.5 x 4.0 cm Left Kidney: 9.7 x 5.4 x 4.2 cm Pancreas: Tail obscured by overlying bowel gas Liver: wnl Gallbladder: No stones seen Evidence for sonographic Sr's sign: No CBD: wnl Spleen: wnl Right Kidney: wnl Left Kidney: wnl Upper IVC: wnl Abd Aorta: wnl The liver is homogenous. The intrahepatic portion of the IVC and proximal abdominal aorta are within normal limits. There is no evidence of cholelithiasis. Common bile duct is unremarkable. The visu alized portions of the pancreas are homogenous. The spleen is unremarkable. Kidneys are symmetric a nd free of hydronephrosis. No renal lesions are seen. IMPRESSION: No significant abnormality seen
[2023-11-20] MEDS ORDERED: METOPROLOL TARTRATE 25 MG TAB PO SCH (09:00)
[2023-11-20] MEDS: METOPROLOL TARTRATE 25 MG TAB PO SCH (09:34)
[2023-11-20] MEDS: ENOXAPARIN 40 MG/0.4 ML SYRINGE SQ SCH (09:34)
[2023-11-20] MEDS: ATORVASTATIN 40 MG TAB PO SCH (09:35)
[2023-11-20] MEDS: ASPIRIN 81 MG PO SCH (09:35)
--- NOTE | 2023-11-20 11:40 | P.PN ---
Subjective Progress Note Date: 11/20/23 Subjective: Patient seen at bedside. Patient reports that this morning she is no longer experiencing chest pain. Pertinent positives and negatives discussed above, a complete review of systems was preformed and all the other sytems were negative. Vitals Signs Reveiwed. General: non toxic, no distress, appears at stated age, normal weight Derm: no unusual rashes/lesions, warm Head: atraumatic, normocephalic, symmetric Eyes: EOMI, no lid lag, anicteric sclera, pupils equal round reactive to light Mouth: no lip lesion, mucus membranes moist Cardiovascular: S1S2 reg, no murmur, positive dorsalis pedis pulse bilateral, no edema Lungs: CTA bilateral, no rhonchi, no rales, no accessory muscle use Abdominal: soft, nontender to palpation, no guarding Ext: muscle strength 5 out of 5 in all 4 extremities grossly, no gross muscle atrophy, no contractures, Neuro: CN II-XI grossly intact, no gross focal neuro deficits Psych: Alert, oriented, appropriate affect Data Reveiwed Today: Patient Labs: Sodium 139, potassium 3.4, chloride 110, BUN 21, creatinine 0.55, AST 24, ALT 23, alkaline phosphatase 132, WBC 5.6, hemoglobin 13.3, and MCV 95.2. Imaging: Abdominal ultrasound showed no significant abnormality. Pending echo. Assesment and Plan: 57-year-old female with no significant past history presents to the ER with sudden onset left-sided chest pain that started this afternoon while she was sitting on the couch in her home. Patient reports similar type of chest pain yesterday which lasted for 1 hour and resolved. Patient is being admitted for workup to rule out ACS. Atypical chest pain rule out ACS Heart score: 4 points, moderate risk for ACS Continue with nitroglycerin ointment every 8 hour Currently holding heparin drip as troponins did not trend up Pending echo results Cardiology consulted, pending recommendations. Continue cardiac monitoring Order atorvastatin 40 mg p.o. daily Ordered aspirin 81 mg p.o. daily Ordered metoprolol 25 mg p.o. daily Lipid panel showed triglycerides 116, cholesterol 237, LDL 144.6, and HDL 69.2. Troponin trend: 0.021>0.027>0.022 Prerenal azotemia likely secondary to dehydration BUN 21, creatinine 0.54 BUN to creatinine ratio more than 20 Started on IV saline 75 cc/h Elevated alkaline phosphatase, secondary to suspected cholelithiasis Alkaline phosphatase 132, total bilirubin 0.3, AST 24, and ALT 23. Abdominal ultrasound on 10/20/2021 shows cholelithiasis versus gallbladder polyp Alkaline phosphatase levels in 2021 were 195, 132, 145 Abdominal ultrasound showed no significant abnormality. Recent accidental fall possible head injury Patient fell to the ground quickly, does not recall hitting her head but does remember feeling bruised on her right hip and right elbow. 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 neuro checks q2 hr F NS 1000 mL IV 999 MLS per hour E received 1 dose of potassium chloride ER 40 mill equivalents N heart healthy diet A normally ambulates unassisted at home DVT ppx: Lovenox 40 mg SQ Code Status: Full code Anticipated discharge place: Pending clinical course Anticipated discharge time: Pending clinical course I have seen and evaluated the patient today. Discussed with the resident and agree with the residents subjective and objective as documented in the resident's note. The assessment and plan was discussed and outlined as below. No more chest pain. Refusing CT head. Chest pain: Troponins trended and ACS ruled out. Echo ordered. ASA 81 mg PO QD. Lipitor as below. Metoprolol 25 mg PO BID. Cardiology consulted. Elevated BP without the diagnosis of HTN: Metoprolol as above. Hypokalemia: Replace. Dyslipidemia: Lipitor 40 mg PO QD. Fall with possible head injury: Refusing CT head. Elevated alk phos: Abd US negative for acute pathology. Objective - Vital Signs Vital signs: Vital Signs Temp 98.3 F 11/20/23 02:00 Pulse 70 11/20/23 02:00 Resp 18 11/20/23 02:00 BP 119/75 11/20/23 02:00 Pulse Ox 98 11/20/23 02:00 FiO2 Intake & Output 11/19/23 11/20/23 11/20/23 18:59 06:59 18:59 Weight 63.503 kg 63.503 kg Other: Voiding Method Toilet # Voids 1 - Labs CBC & Chem 7: 11/20/23 02:00 11/20/23 02:00 Labs: Abnormal Lab Results - Last 24 Hours (Table) 11/19/23 11/19/23 11/20/23 Range/Units 16:53 22:01 02:00 Potassium 3.4 L (3.5-5.1) mmol/L Chloride 110 H (98-107) mmol/L BUN 21 H 21 H (7-17) mg/dL Alkaline Phosphatase 130 H 132 H (38-126) U/L Total Protein 6.2 L (6.3-8.2) g/dL Cholesterol 237.00 H (0.00-200.00) mg/dL LDL Cholesterol, Calc 144.6 H (0.0-131.0) mg/dL HDL Cholesterol 69.20 H (40.00-60.00) mg/dL
--- NOTE | 2023-11-20 13:17 | P.CRDCN ---
History of Present Illness Consult date: 11/20/23 History of present illness: This is a very pleasant 57-year-old female patient with a past medical history significant for hypertension and dyslipidemia not on any treatment presented to the hospital complaining of chest discomfort. She was in her usual state of health yesterday when she was at home and started experiencing discomfort in the middle of the chest as a dull feeling with no radiation to the arms or neck or shoulders or back and no associated symptoms of shortness of breath or sweating or dizziness or lightheadedness or any feeling of heart racing or fluttering or presyncope or syncope. She underwent further evaluation including an EKG showed sinus mechanism with no significant ST or T wave abnormalities and cardiac enzymes came in to be unremarkable. The rest of the workup came in to be unremarkable besides mildly elevated alkaline phosphatase and subsequently she underwent an abdominal ultrasound came in to be unremarkable. Her pressure has been elevated and consistent with stage II hypertension. Her LDL also has been elevated with LDL level of 144. She was not taking any blood pressure or lipid- lowering agents as an outpatient she was started on beta-ana as well as statin while she is here which I would agree on. Examination is remarkable for regular rhythm with a soft systolic murmur and clear breathing sounds bilaterally and no carotid bruit and no edema was noted Assessment Chest discomfort appears to be atypical Hypertension consistent with stage II Dyslipidemia Overweight Plan Acute coronary event was ruled out Pulmonary embolism was ruled out Agree about the current blood pressure and dyslipidemia medications Follow-up on the echocardiogram which was performed Further recommendation to follow Past Medical History Past Medical History: No Reported History Additional Past Medical History / Comment(s): IBS-constipation,hx polyps,PM>1yr History of Any Multi-Drug Resistant Organisms: None Reported Additional Past Surgical History / Comment(s): Breast implants,tummy tuck CARPAL TUNNEL RT HAND Past Anesthesia/Blood Transfusion Reactions: Motion Sickness Past Psychological History: No Psychological Hx Reported, Depression Smoking Status: Never smoker Past Alcohol Use History: Occasional Past Drug Use History: None Reported - Past Family History Mother Family Medical History: Diabetes Mellitus Father History Unknown: Yes Son(s) Additional Family Medical History / Comment(s): Marfan's Syndrome Brother(s) Family Medical History: Cancer Additional Family Medical History / Comment(s): Leukemia Medications and Allergies Home Medications Medication Instructions Recorded Confirmed Type No Known Home Medications 11/19/23 11/19/23 History Allergies Allergy/AdvReac Type Severity Reaction Status Date / Time No Known Allergies Allergy Verified 11/19/23 19:07 Physical Exam Vitals: Vital Signs Temp Pulse Pulse Pulse Resp BP BP 11/20/23 07:00 97.8 F 66 16 11/20/23 02:00 98.3 F 70 18 119/75 11/19/23 20:13 79 18 178/96 11/19/23 20:00 98.0 F 71 18 11/19/23 16:29 97.7 F 72 18 144/87 BP Pulse Ox 11/20/23 07:00 149/83 99 11/20/23 02:00 98 11/19/23 20:13 98 11/19/23 20:00 155/92 97 11/19/23 16:29 97 Intake and Output 11/19/23 11/20/23 11/20/23 22:59 06:59 14:59 Other: Voiding Method Toilet # Voids 1 1 Weight 63.503 kg Results 11/20/23 02:00 11/20/23 02:00 Cardiac Enzymes 11/19/23 11/19/23 11/19/23 Range/Units 16:53 16:53 22:01 AST 27 (14-36) U/L Troponin I 0.021 0.027 (0.000-0.034) ng/mL 11/20/23 11/20/23 Range/Units 01:08 02:00 AST 24 (14-36) U/L Troponin I 0.022 (0.000-0.034) ng/mL Coagulation 11/19/23 Range/Units 16:53 PT 10.3 (10.0-12.5) sec APTT 24.2 (22.0-30.0) sec Lipids 11/19/23 Range/Units 22:01 Triglycerides 116.00 (0.00-149.00) mg/dL Cholesterol 237.00 H (0.00-200.00) mg/dL HDL Cholesterol 69.20 H (40.00-60.00) mg/dL Cholesterol/HDL Ratio 3.42 Ratio CBC 11/19/23 11/20/23 Range/Units 16:53 02:00 WBC 5.3 5.6 (3.8-10.6) k/uL RBC 4.36 4.21 (3.80-5.40) m/uL Hgb 14.1 13.3 (11.4-16.0) gm/dL Hct 41.4 40.1 (34.0-46.0) % Plt Count 248 243 (150-450) k/uL Comprehensive Metabolic Panel 11/19/23 11/20/23 Range/Units 16:53 02:00 Sodium 138 139 (137-145) mmol/L Potassium 4.0 3.4 L (3.5-5.1) mmol/L Chloride 107 110 H (98-107) mmol/L Carbon Dioxide 26 23 (22-30) mmol/L BUN 21 H 21 H (7-17) mg/dL Creatinine 0.54 0.55 (0.52-1.04) mg/dL Glucose 92 92 (74-99) mg/dL Calcium 9.3 8.9 (8.4-10.2) mg/dL AST 27 24 (14-36) U/L ALT 27 23 (4-34) U/L Alkaline Phosphatase 130 H 132 H (38-126) U/L Total Protein 6.7 6.2 L (6.3-8.2) g/dL Albumin 4.2 3.8 (3.5-5.0) g/dL Current Medications Generic Name Dose Route Start Last Admin Trade Name Freq PRN Reason Stop Dose Admin Aspirin 81 mg 11/20/23 09:00 11/20/23 09:35 Aspirin 81 Mg PO 81 mg DAILY ELISE Administration Atorvastatin Calcium 40 mg 11/20/23 09:00 11/20/23 09:35 Atorvastatin 40 Mg Tab PO 40 mg DAILY ELISE Administration Enoxaparin Sodium 40 mg 11/20/23 09:00 11/20/23 09:34 Enoxaparin 40 Mg/0.4 Ml Syringe SQ 40 mg DAILY ELISE Administration Sodium Chloride 1,000 mls @ 75 mls/hr 11/19/23 20:45 11/19/23 21:58 Saline 0.9% IV 75 mls/hr .[id number] ELISE Administration Metoprolol Tartrate 25 mg 11/20/23 09:00 11/20/23 09:34 Metoprolol Tartrate 25 Mg Tab PO 25 mg BID ELISE Administration Morphine Sulfate 2 mg 11/19/23 21:29 Morphine Sulfate 2 Mg/Ml Syringe IVP Q4HR PRN Pain/Discomfort Naloxone HCl 0.2 mg 11/19/23 19:36 Naloxone 0.4 Mg/Ml 1 Ml Vial IV Q2M PRN Opioid Reversal Nitroglycerin 0.5 inch 11/19/23 19:11 11/20/23 09:54 Nitroglycerin Oint 1 Inch/Gm Packet TOPICAL Not Given Q8HR [facility] Ondansetron HCl 4 mg 11/19/23 19:36 Ondansetron 4 Mg/2 Ml Vial IVP Q8HR PRN Nausea And Vomiting Intake and Output 11/19/23 11/20/23 11/20/23 22:59 06:59 14:59 Other: Voiding Method Toilet # Voids 1 1 Weight 63.503 kg 11/20/23 02:00 11/20/23 02:00
--- NOTE | 2023-11-20 13:37 | CA ---
Transthoracic Echo Report Name: Lacey Morfin Age: 57 Gender: F : 1965 Exam Date: 11/20/2023 07:38 Exam Location: [place] [facility] Ht (in): 63 Wt (lb): 140 Ordering Physician: Alonso Correa MD Attending/Referring Phys: Client Success Specialist Yojana Lugo RDCS Procedure CPT: Indications: Chest Pain Cardiac Hx: Technical Quality: Good Contrast 1: Total Dose (mL): Contrast 2: Total Dose (mL): MEASUREMENTS (Male / Female) Normal Values 2D ECHO LV Diastolic Diameter PLAX 3.2 cm 4.2 - 5.9 / 3.9 - 5.3 cm LV Systolic Diameter PLAX 2.1 cm IVS Diastolic Thickness 1.2 cm 0.6 - 1.0 / 0.6 - 0.9 cm LVPW Diastolic Thickness 1.1 cm 0.6 - 1.0 / 0.6 - 0.9 cm LV Relative Wall Thickness 0.7 RV Internal Dim ED PLAX 2.9 cm LA Systolic Diameter LX 3.4 cm 3.0 - 4.0 / 2.7 - 3.8 cm LV Diastolic Volume MOD BP 65.0 cm??? 67 - 155 / 56 - 104 cm??? LV Systolic Volume MOD BP 27.1 cm??? 22 - 58 / 19 - 49 cm??? LV Ejection Fraction MOD BP 58.4 % >= 55 % LV Cardiac Index MOD BP 1661.5 cm???/min???m??? LV Diastolic Volume MOD 4C 60.7 cm??? LV Systolic Volume MOD 4C 24.0 cm??? LV Ejection Fraction MOD 4C 60.4 % LV Cardiac Index MOD 4C 1603.6 cm???/min???m??? LV Diastolic Length 4C 7.0 cm LV Systolic Length 4C 5.6 cm LV Diastolic Volume MOD 2C 70.9 cm??? LV Systolic Volume MOD 2C 30.2 cm??? LV Ejection Fraction MOD 2C 57.4 % LV Cardiac Index MOD 2C 1782.0 cm???/min???m??? LV Diastolic Length 2C 7.0 cm LV Systolic Length 2C 5.8 cm LA Volume 47.8 cm??? 18 - 58 / 22 - 52 cm??? LA Volume Index 28.2 cm???/m??? 16 - 28 cm???/m??? M-MODE Aortic Root Diameter MM 3.1 cm AV Cusp Separation MM 1.7 cm DOPPLER MV Area PHT 2.5 cm??? Mitral E Point Velocity 50.2 cm/s Mitral A Point Velocity 71.2 cm/s Mitral E to A Ratio 0.7 MV Deceleration Time 309.4 ms TR Peak Velocity 210.9 cm/s TR Peak Gradient 17.8 mmHg Right Ventricular Systolic Press 22.0 mmHg FINDINGS Left Ventricle Left ventricular ejection fraction is estimated at 55-60 %. Small left ventricular cavity. Mildly increased septal wall thickness. Mildly increased posterior wall thickness. Normal left ventricular wall motion. Right Ventricle Normal right ventricular size and function. Right ventricular systolic pressure within normal limits. Right Atrium Normal right atrial size. No right atrial thrombus or mass seen. Left Atrium Normal left atrial size. No left atrial thrombus or mass present. Mitral Valve Structurally normal mitral valve. Mild to moderate mitral regurgitation. Aortic Valve Trileaflet aortic valve. No aortic valve stenosis or regurgitation. Tricuspid Valve Structurally normal tricuspid valve. Mild to moderate tricuspid regurgitation. Pulmonic Valve Structurally normal pulmonic valve. No pulmonic regurgitation. Pericardium No pericardial effusion. No pleural effusion. Aorta Normal size aortic root and proximal ascending aorta. CONCLUSIONS Normal biventricular systolic function Mild to moderate mitral and tricuspid regurgitation Previewed by: Dr. Silvestre Packer MD (Electronically Signed) Final Date: 20 November 2023 13:36
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
--- NOTE | 2023-11-21 12:49 | P.PN ---
Subjective Progress Note Date: 11/21/23 This is a very pleasant 57-year-old female patient with a past medical history significant for hypertension and dyslipidemia not on any treatment presented to the hospital complaining of chest discomfort. She was in her usual state of health yesterday when she was at home and started experiencing discomfort in the middle of the chest as a dull feeling with no radiation to the arms or neck or shoulders or back and no associated symptoms of shortness of breath or sweating or dizziness or lightheadedness or any feeling of heart racing or fluttering or presyncope or syncope. She underwent further evaluation including an EKG showed sinus mechanism with no significant ST or T wave abnormalities and cardiac enzymes came in to be unremarkable. The rest of the workup came in to be unremarkable besides mildly elevated alkaline phosphatase and subsequently she underwent an abdominal ultrasound came in to be unremarkable. Her pressure has been elevated and consistent with stage II hypertension. Her LDL also has been elevated with LDL level of 144. She was not taking any blood pressure or lipid-lowering agents as an outpatient she was started on beta-ana as well as statin while she is here which I would agree on. Examination is remarkable for regular rhythm with a soft systolic murmur and clear breathing sounds bilaterally and no carotid bruit and no edema was noted November 21 2023 The patient was seen and evaluated this morning. She did have an episode of chest discomfort earlier. No shortness of breath. The pressure remains elevated and consistent with stage II hypertension with him going to add losartan to the current medical regimen. The echo showed normal LV systolic function with mild to moderate mitral and tricuspid regurgitation. Examination is remarkable for regular rhythm with a systolic murmur at the right upper sternal border and clear breathing sounds bilaterally and no edema was noted Assessment Chest discomfort appears to be atypical Hypertension consistent with stage II Dyslipidemia Overweight Plan Acute coronary event was ruled out Pulmonary embolism was ruled out Continue the current medical regimen Add losartan to the current medical regimen Proceed with stress test tomorrow morning Objective - Vital Signs Vital signs: Vital Signs Temp 97.4 F L 11/21/23 07:00 Pulse 65 11/21/23 07:00 Resp 16 11/21/23 07:00 BP 149/89 11/21/23 07:00 Pulse Ox 100 11/21/23 07:00 FiO2 Intake & Output 11/20/23 11/21/23 11/21/23 18:59 06:59 18:59 Intake Total 118 480 Balance 118 480 Intake: Oral 118 480 Other: Voiding Method Toilet # Voids 5 3 - Labs CBC & Chem 7: 11/20/23 02:00 11/20/23 21:05
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
[2023-11-21] MEDS: LOSARTAN 25 MG TAB PO SCH (15:58)
[2023-11-22 06:06] VITALS: RESP 16
[2023-11-22 10:19] LABS: HCT 44.3 % (37.2-46.3); HGB 14.7 g/dL (12.0-15.0); MCH 31.5 pg (27.0-32.0); MCHC 33.2 g/dL (32.0-37.0); MCV 94.9 FL (80.0-97.0); Mean Platelet Volume 10.3 FL (9.5-12.2); NRBC Per 100 WBC 0 X 10*3/uL (0.00-0.01); Platelet Count 239 X 10*3/uL (140-440); RBC 4.67 X 10*6/uL (4.10-5.20); RDW 12.4 % (11.5-14.5); WBC 5.23 X 10*3/uL (4.50-10.00)
[2023-11-22 10:27] LABS: ALT 23 U/L (8-44); AST 21 U/L (13-35); Albumin 4.3 g/dL (3.8-4.9); Albumin/Globulin Ratio 1.87 Ratio (1.60-3.17); Alkaline Phosphatase 133 U/L (41-126); Calcium 9.2 mg/dL (8.7-10.3); Carbon Dioxide 21.5 mmol/L (21.6-31.8); Chloride 110 mmol/L (96-109); Globulin 2.3 g/dL (1.6-3.3); Glucose 92 mg/dL (70-110); Potassium 4.1 mmol/L (3.5-5.5); Sodium 141 mmol/L (135-145); Total Bilirubin 0.3 mg/dL (0.3-1.2); Total Protein 6.6 g/dL (6.2-8.2)
--- NOTE | 2023-11-22 11:20 | P.PN ---
Subjective HISTORY OF PRESENT ILLNESS: This is a very pleasant 57-year-old female patient with a past medical history significant for hypertension and dyslipidemia not on any treatment presented to the hospital complaining of chest discomfort. She was in her usual state of health yesterday when she was at home and started experiencing discomfort in the middle of the chest as a dull feeling with no radiation to the arms or neck or shoulders or back and no associated symptoms of shortness of breath or sweating or dizziness or lightheadedness or any feeling of heart racing or fluttering or presyncope or syncope. She underwent further evaluation including an EKG showed sinus mechanism with no significant ST or T wave abnormalities and cardiac enzymes came in to be unremarkable. The rest of the workup came in to be unremarkable besides mildly elevated alkaline phosphatase and subsequently she underwent an abdominal ultrasound came in to be unremarkable. Her pressure has been elevated and consistent with stage II hypertension. Her LDL also has been elevated with LDL level of 144. She was not taking any blood pressure or lipid- lowering agents as an outpatient she was started on beta-ana as well as statin while she is here which I would agree on. Examination is remarkable for regular rhythm with a soft systolic murmur and clear breathing sounds bilaterally and no carotid bruit and no edema was noted November 21 2023 The patient was seen and evaluated this morning. She did have an episode of chest discomfort earlier. No shortness of breath. The pressure remains elevated and consistent with stage II hypertension with him going to add losartan to the current medical regimen. The echo showed normal LV systolic function with mild to moderate mitral and tricuspid regurgitation. Examination is remarkable for regular rhythm with a systolic murmur at the right upper sternal border and clear breathing sounds bilaterally and no edema was noted November 22, 2023 Patient examined this morning at the bedside. Patient currently denies chest pain or pressure. She denies shortness of breath. Vital signs are stable. Echocardiogram revealed ejection fraction 55 to 60% with mild to moderate mitral and tricuspid regurgitation PHYSICAL EXAM: VITAL SIGNS: Reviewed. GENERAL: Well-developed in no acute distress. NECK: Supple. No JVD or thyromegaly LUNGS: Respirations even and unlabored. Lungs essentially clear to auscultation bilaterally. HEART: Regular rate and rhythm. S1 and S2 heard. EXTREMITIES: Normal range of motion. No clubbing or cyanosis. Peripheral pulses intact. No lower extremity edema ASSESSMENT: Chest pain, troponin negative x 3, ACS ruled out Hypertension Hyperlipidemia PLAN: Continue current cardiac medications Patient to undergo stress echocardiogram today If negative, patient may be discharged home from a cardiac standpoint Nurse practitioner note has been reviewed by physician. Signing provider agrees with the documented findings, assessment, and plan of care documented by ATHLETIC TEAM PHYSICIAN as a scribe. Objective - Vital Signs Vital signs: Vital Signs Temp 97.6 F 11/22/23 07:00 Pulse 66 11/22/23 07:00 Resp 16 11/22/23 07:00 BP 143/80 11/22/23 07:00 Pulse Ox 100 11/22/23 07:00 FiO2 Intake & Output 11/21/23 11/22/23 11/22/23 18:59 06:59 18:59 Intake Total 118 Output Total 300 Balance 118 -300 Intake: Oral 118 Output: Urine 300 Other: # Voids 2 1 # Bowel Movements 1 - Labs CBC & Chem 7: 11/22/23 08:19 11/22/23 08:19 Labs: Abnormal Lab Results - Last 24 Hours (Table) 11/22/23 Range/Units 08:19 Chloride 110 H (96-109) mmol/L Carbon Dioxide 21.5 L (21.6-31.8) mmol/L BUN/Creatinine Ratio 25.00 H (12.00-20.00) Ratio Alkaline Phosphatase 133 H (41-126) U/L
--- NOTE | 2023-11-22 11:40 | P.PN ---
Subjective Progress Note Date: 11/22/23 Patient seen at bedside, no significant overnight events. Patient complains of nausea after consuming losartan. Patient is hopeful she can leave today. General: non toxic, no distress, appears at stated age Derm: warm, dry Head: atraumatic, normocephalic, symmetric Eyes: EOMI, no lid lag, anicteric sclera Mouth: no lip lesion, mucus membranes moist Cardiovascular: S1S2 reg, no murmur Lungs: CTA bilateral, no rhonchi, no rales , no accessory muscle use Ext: no gross muscle atrophy, no edema, no contractures Neuro: no focal neuro deficits Psych: Alert, oriented, appropriate affect Based on my assessment of this patient, this patient meets a moderate complexity level of care. Chest pain: Troponins trended and ACS ruled out. Echo as above. ASA 81 mg PO QD. Lipitor as below. Metoprolol 25 mg PO BID. losartan 25 mg p.o. daily (patient reports having nausea after taking losartan, this nausea could also be a side effect of being n.p.o. for the stress test today). Per cardiology if stress echocardiogram is negative patient can be discharged from cardiac standpoint. Elevated BP without the diagnosis of HTN: Metoprolol and losartan as above. Hypokalemia: Resolved, 4.1 today Dyslipidemia: Lipitor 40 mg PO QD. Fall with possible head injury: CT head showed no acute intracranial process. Elevated alk phos: Abd US negative for acute pathology. CODE STATUS: FULL CODE DVT Prophylaxis: Lovenox SQ GI Prophylaxis: Designated medical POA if patient is not able to make medical decisions for themselves: I have seen and evaluated the patient today. Discussed with the resident and agree with the residents subjective and objective as documented in the resident's note. The assessment and plan was discussed and outlined as below. No more chest pain. Plans for stress test. Discharge if stress is negative. Objective - Vital Signs Vital signs: Vital Signs Temp 98.0 F 11/22/23 02:00 Pulse 66 11/22/23 02:00 Resp 16 11/22/23 02:00 BP 142/82 11/22/23 02:00 Pulse Ox 98 11/22/23 02:00 FiO2 Intake & Output 11/21/23 11/22/23 11/22/23 18:59 06:59 18:59 Intake Total 118 Output Total 300 Balance 118 -300 Intake: Oral 118 Output: Urine 300 Other: # Voids 2 1 # Bowel Movements 1 - Labs CBC & Chem 7: 11/22/23 08:19 11/22/23 08:19
[2023-11-22 14:52] VITALS: BP 119/82; PULSE 78; TEMP 98.6
--- NOTE | 2023-11-22 15:34 | CA ---
Stress Echo Report Lacey Morfin Age: 57 Gender: F : 1965 Exam Date: 11/22/2023 12:23 Exam Location: [facility] Ht (in): 63 Wt (lb): 140 Ordering Physician: Silvestre Packer MD ([id number]) Referring Physician: SILVESTRE PACKER,, Dope Pourer: Yojana Lugo RDCS Technologist Procedure CPT: Indication: Chest Pain ICD-9 Codes: Rhythm: Patient History: Chest pain, DANNY, Hypertnesion and family history of heart disease Cardiac Medications: Medications in past 24 hours: Contrast: Stress Results Protocol: Adithya Total dose(mL): Exercise Duration (min:sec): 10.[address] Depression (mm): Angina Score: Lemon Score: METS: 12.1 Resting HR: 72 Resting BP: 147 / 86 Peak HR: 161 Peak BP: 154 / 93 Max Predicted HR: 162 99 % Max Predicted HR Target HR: 138 Double Product: [id number] Stress Summary: BP Response: Reason for Termination: MAX EXERTION/TARGET HR Cardiac Symptoms: NO SYMPTOMS ECG Analysis Resting ECG: Stress ECG: Arrhythmia: Echo Analysis Resting Echo: Peak Echo Analysis: MEASUREMENTS (Male/Female) Normal Values CONCLUSIONS No ECG evidence of ischemia No echocardiographic evidence for ischemia Total exercise time 10-1/2 minutes No arrhythmias, no symptoms Normal blood pressure response Impression normal exercise stress echo with excellent exercise capacity Excellent augmentation of overall LV contractility without development of any wall motion abnormalities on echo images Dr. Venancio Rushing MD (Electronically Signed) Final Date: 22 November 2023 15:33
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
== END 2023-11-22 17:34 | disposition home or self-care (01) ==
LOC: EC 16:18 → 6NMEDSUR 19:37
PROVIDERS: ADMIT Internal Medicine; ATTEND Internal Medicine
DX: R07.89 Other chest pain (principal); I10 Essential (primary) hypertension; E87.6 Hypokalemia; I08.1 Rheumatic disorders of both mitral and tricuspid valves; E78.5 Hyperlipidemia, unspecified; M79.601 Pain in right arm; R74.8 Abnormal levels of other serum enzymes; R79.89 Other specified abnormal findings of blood chemistry; R41.3 Other amnesia; N95.1 Menopausal and female climacteric states; F39 Unspecified mood [affective] disorder; E66.3 Overweight; Z68.24 Body mass index [BMI] 24.0-24.9, adult; W03.XXXA Other fall on same level due to collision with another person, initial encounter; Z82.49 Family history of ischemic heart disease and other diseases of the circulatory system
CPT/HCPCS: 96360; 96361 ×3; 96372 ×2; 99285; 36415; 93005; 93306; 93351; 80061; 80053 ×3; 83735; 84132; 84484 ×2; 85025 ×2; 85027; 85610; 85730; 71046; 76700; 70450; G0378 ×4; J1650 ×2

== ENCOUNTER → 2024-03-02 | Outpatient (CLI) | payer BC ==
[2024-03-02 14:07] LABS: Basophils % (A) 1 %; Eosinophils # (A) 0.1 k/uL (0-0.7); Eosinophils % (A) 2 %; HCT 46.1 % (34.0-46.0); HGB 14.9 gm/dL (11.4-16.0); Lymphocytes # (A) 1.3 k/uL (1.0-4.8); Lymphocytes % (A) 28 %; MCH 31.3 pg (25.0-35.0); MCHC 32.4 g/dL (31.0-37.0); MCV 96.7 fL (80.0-100.0); Mean Platelet Volume 6.9; Monocytes # (A) 0.2 k/uL (0-1.0); Monocytes % (A) 4 %; Neutrophils % (A) 63 %; Platelet Count 271 k/uL (150-450); RBC 4.76 m/uL (3.80-5.40); RDW 13.1 % (11.5-15.5); WBC 4.7 k/uL (3.8-10.6)
[2024-03-02 14:28] LABS: ALT 25 U/L (4-34); AST 30 U/L (14-36); African American GFR (CKD) >90 (>60 ml/min/1.73 sqM); Albumin 4.6 g/dL (3.5-5.0); Albumin/Globulin Ratio 1.4; Alkaline Phosphatase 136 U/L (38-126); Anion Gap 6 mmol/L; Blood Urea Nitrogen 15 mg/dL (7-17); Calcium 9.4 mg/dL (8.4-10.2); Carbon Dioxide 25 mmol/L (22-30); Chloride 109 mmol/L (98-107); Globulin 3.2 g/dL; Glucose 124 mg/dL (74-99); Non-African American GFR(CKD) >90 (>60 ml/min/1.73 sqM); Potassium 4.2 mmol/L (3.5-5.1); Sodium 140 mmol/L (137-145); Total Bilirubin 0.6 mg/dL (0.2-1.3); Total Protein 7.8 g/dL (6.3-8.2)
[2024-03-02 14:55] LABS: RBC Morphology Normal
[2024-03-02 20:25] LABS: Anti-Smith Ab Interp Negative (Negative)
[2024-03-02 21:38] LABS: Hepatitis A Antibody IgM Nonreactive (Nonreactive); Hepatitis B Core IgM Nonreactive (Nonreactive); Hepatitis B Surface Antigen Nonreactive (Nonreactive); Hepatitis C IgG Antibody Nonreactive (Nonreactive)
== END | disposition home or self-care (01) ==
LOC: LABWHC1 12:14
PROVIDERS: ATTEND Internal Medicine
DX: R74.8 Abnormal levels of other serum enzymes (principal); D72.819 Decreased white blood cell count, unspecified
CPT/HCPCS: 36415; 80053; 80074; 82607; 82746; 83516; 84165; 85025; 86038; 86235; 86335

== ENCOUNTER → 2024-03-28 | Outpatient (CLI) | payer BC ==
--- NOTE | 2024-03-28 08:59 | US ---
EXAMINATION TYPE: US abdomen complete DATE OF EXAM: 03/28/2024 COMPARISON: Abdominal ultrasound 11/20/2023, 10/20/2021, ultrasound liver 11/29/2019 CLINICAL INDICATION: Female, 58 years old with history of R74.8 ELEV ALKALINE PHOSPHATASE LEVELS; Pat ient denies any other signs or symptoms, Hx HTN and abdominoplasty TECHNIQUE: Grayscale and color Doppler imaging of the abdomen was performed. FINDINGS: EXAM MEASUREMENTS: Liver Length: 14.8 cm Gallbladder Wall: 0.1 cm CBD: 0.3 cm, color Doppler imaging was utilized to isolate the common bile duct for measurement. Spleen: 8.2 cm Right Kidney: 8.5 x 3.7 x 5.4 cm Left Kidney: 11.1 x 5.5 x 5.3 cm DISHWASHER BUSSER NOTES: Pancreas: wnl Liver: wnl Gallbladder: ? Contracted - patient is properly NPO Evidence for sonographic Sr's sign: No CBD: wnl Spleen: wnl Right Kidney: wnl Left Kidney: wnl Upper IVC: wnl Abd Aorta: wnl The liver is homogenous. The intrahepatic portion of the IVC and proximal abdominal aorta are within normal limits. Contracted gallbladder. There is no evidence of cholelithiasis. Common bile duct is unremarkable. The visualized portions of the pancreas are homogenous. The spleen is unremarkable. Kidneys are symmetric and free of hydronephrosis. No renal lesions are seen. IMPRESSION: No ultrasound evidence of an acute abdominal process. [facility], , 03/28/2024 8:57 AM
== END | disposition home or self-care (01) ==
LOC: RADUSWWP 07:07
PROVIDERS: ATTEND Internal Medicine
DX: R74.8 Abnormal levels of other serum enzymes (principal)
CPT/HCPCS: 76700

== ENCOUNTER → 2024-11-10 | Outpatient (CLI) | payer BC ==
[2024-11-10 15:13] LABS: Basophils # (A) 0.05 X 10*3/uL (0.00-0.10); Basophils % (A) 1.2 %; Eosinophils # (A) 0.07 X 10*3/uL (0.04-0.35); Eosinophils % (A) 1.7 %; HCT 44.0 % (37.2-46.3); HGB 14.3 g/dL (12.0-15.0); Immature Grans, Automated 0.20 %; Lymphocytes # (A) 1.22 X 10*3/uL (0.90-5.00); Lymphocytes % (A) 29.6 %; MCH 31.2 pg (27.0-32.0); MCHC 32.5 g/dL (32.0-37.0); MCV 95.9 FL (80.0-97.0); Monocytes # (A) 0.28 X 10*3/uL (0.20-1.00); Monocytes % (A) 6.8 %; NRBC Per 100 WBC 0 X 10*3/uL (0.00-0.01); Neutrophils # (A) 2.49 X 10*3/uL (1.80-7.70); Neutrophils % (A) 60.5 %; Platelet Count 246 X 10*3/uL (140-440); RBC 4.59 X 10*6/uL (4.10-5.20); RDW 12.7 % (11.5-14.5); WBC 4.12 X 10*3/uL (4.50-10.00)
[2024-11-10 16:17] LABS: ALT 31 U/L (8-44); AST 21 U/L (13-35); Albumin 4.4 g/dL (3.8-4.9); Albumin/Globulin Ratio 1.57 Ratio (1.60-3.17); Alkaline Phosphatase 129 U/L (41-126); Anion Gap 10.90 mmol/L (4.00-12.00); BUN/Creat Ratio 30.83 Ratio (12.00-20.00); Blood Urea Nitrogen 18.5 mg/dL (9.0-27.0); Calcium 9.8 mg/dL (8.7-10.3); Carbon Dioxide 24.1 mmol/L (21.6-31.8); Chloride 104 mmol/L (96-109); Cholesterol 273.00 mg/dL (0.00-200.00); Follicle Stimulating Hormone 59.9 mIU/mL; Globulin 2.8 g/dL (1.6-3.3); Glucose 96 mg/dL (70-110); HDL Cholesterol 74.40 mg/dL (40.00-60.00); LDL Cholesterol,Calculated 185.3 mg/dL (0.0-131.0); Potassium 5.2 mmol/L (3.5-5.5); Sodium 139 mmol/L (135-145); Total Protein 7.2 g/dL (6.2-8.2); Triglycerides 66.50 mg/dL (0.00-149.00); VLDL Calculation 13.30 mg/dL (5.00-40.00)
== END | disposition home or self-care (01) ==
LOC: LABWHC1 11:18
PROVIDERS: ATTEND Family Medicine
DX: Z00.00 Encounter for general adult medical examination without abnormal findings (principal); Z12.31 Encounter for screening mammogram for malignant neoplasm of breast; I10 Essential (primary) hypertension; E78.5 Hyperlipidemia, unspecified; R53.82 Chronic fatigue, unspecified; R23.2 Flushing; R61 Generalized hyperhidrosis
CPT/HCPCS: 36415; 80053; 80061; 82671; 83001; 83002; 84146; 84403; 84443; 85025

== ENCOUNTER → 2024-11-22 | Outpatient (CLI) | payer BC ==
--- NOTE | 2024-11-22 17:16 | MM ---
Reason for Exam: Screening (asymptomatic). Last mammogram was performed 1 year(s) and 9 month(s) ago. Patient History: Menarche at age 15. First Full-Term at age 21. Postmenopausal. 1997, Bilateral Implants. 2011, Bilateral Implants. Risk Values: Joanne 5 year model risk: 0.7%. NCI Lifetime model risk: 4.3%. Prior Study Comparison: 04/02/2021 Bilateral Diagnostic Mammogram, [facility]. 11/26/2021 Bilateral MG screening mammo implant/CAD, [facility]. 02/19/2023 Bilateral MG 3D screen mammo imp/cad., [facility]. Tissue Density: There are scattered areas of fibroglandular density. Findings: Analyzed By CAD. Retropectoral silicone implants. There is no suspicious group of microcalcifications or new suspicious mass in either breast. Overall Assessment: Negative, BI-RAD 1 Management: Screening Mammogram of both breasts in 1 year. Patient should continue monthly self-breast exams. A clinical breast exam by your physician is recommended on an annual basis. This exam should not preclude additional follow-up of suspicious palpable abnormalities. Note on Joanne scores and lifetime risk: 1. A Joanne score greater than 3% is considered moderate risk. If this is the case, consider specialist referral to assess eligibility for a risk reducing agent. 2. If overall lifetime risk for the development of breast cancer is 20% or higher, the patient may qualify for future screening with alternating mammogram and breast MRI. [facility], , 11/22/2024 5:13 PM. Electronically signed and approved by: Kayla Ordonez M.D. Radiologist
== END | disposition home or self-care (01) ==
LOC: RADMAMWWP 13:57
PROVIDERS: ATTEND Family Medicine
DX: Z12.31 Encounter for screening mammogram for malignant neoplasm of breast (principal); R92.323 Mammographic fibroglandular density, bilateral breasts; Z78.0 Asymptomatic menopausal state; Z98.82 Breast implant status
CPT/HCPCS: 77063; 77067